=== PATIENT | male | born 1940 | race Caucasian/White ===

== ENCOUNTER 2018-12-03 10:04 | Observation (INO) | payer MEDICARE ==
[~2018-12-03] VITALS: Ht 175.3 cm; Wt 74.8 kg
[2018-12-03 10:29] LABS: BASOPHILS ABSOLUTE AUTO 0.03 K/mm3 (0.00-0.23); BASOPHILS PERCENT AUTO 0 % (0-2); EOSINOPHILS ABSOLUTE AUTO 0.09 K/mm3 (0.00-0.68); EOSINOPHILS PERCENT AUTO 1 % (0-6); Hematocrit 40.9 % (37.0-53.0); Hemoglobin 13.7 g/dL (13.5-17.5); IMMATURE GRAN ABSOLUTE AUTO 0.06 K/mm3 (0.00-0.10); IMMATURE GRAN PERCENT AUTO 1 % (0-1); LYMPHOCYTES ABSOLUTE AUTO 3.37 K/mm3 (0.84-5.20); LYMPHOCYTES PERCENT AUTO 29 % (21-46); MONOCYTES ABSOLUTE AUTO 1.37 K/mm3 (0.16-1.47); MONOCYTES PERCENT AUTO 12 % (4-13); Mean Corpuscular HGB 30.5 pg (26.0-34.0); Mean Corpuscular HGB Conc 33.5 g/dL (31.5-36.5); Mean Corpuscular Volume 91 fL (80-100); Mean Platelet Volume 9.4 fL (9.1-12.4); NEUTROPHILS ABSOLUTE AUTO 6.81 K/mm3 (1.96-9.15); NEUTROPHILS PERCENT AUTO 58 % (41-73); Platelet Count 222 K/mm3 (150-400); RDW Coefficient Variation 14.5 % (11.7-14.2); RDW Standard Deviation 48.5 fL (35.1-46.3); Red Blood Cell Count 4.49 M/mm3 (4.30-5.90); White Blood Cell Count 11.73 K/mm3 (4.00-11.30)
[2018-12-03 10:43] LABS: International Normalized Ratio 1.03; Prothrombin Time Results 10.9 Sec (9.7-11.5)
[2018-12-03 10:45] LABS: Magnesium, Blood 1.9 mg/dL (1.6-2.4)
[2018-12-03 10:46] LABS: Alanine Aminotransfer (ALT/SGP 38 U/L (12-78); Albumin, Blood 3.7 g/dL (3.4-5.0); Albumin/Globulin Ratio 1.2 (0.8-1.8); Alk Phos 92 U/L (50-136); Anion Gap 9 mmol/L (6-16); Aspartate Aminotrans (AST/SGOT 33 U/L (12-37); Bilirubin, Total 0.3 mg/dL (0.1-1.0); Blood Urea Nitrogen 26 mg/dL (8-24); Bun/Creatinine Ratio 28.9 (12.0-20.0); CO2, Blood 27 mmol/L (21-32); Calcium, Blood 9.2 mg/dL (8.5-10.1); Chloride, Blood 96 mmol/L (98-108); Globulin, Blood 3.2 g/dL (2.2-4.0); Glomerular Filtration Rate >60 (60-); Glucose, Blood 134 mg/dL (70-99); Potassium, Blood 4.1 mmol/L (3.5-5.5); Sodium, Blood 132 mmol/L (136-145); Total Protein, Blood 6.9 g/dL (6.4-8.2); Troponin I <0.015 ng/mL (0.000-0.040)
[2018-12-03 11:03] LABS: Digoxin (Lanoxin) <0.06 ug/mL (0.80-2.00)
[2018-12-03] MEDS ORDERED: ATOR40TA PO (12:07)
[2018-12-03] MEDS ORDERED: ALLERGY10 MG PO (12:07)
[2018-12-03] MEDS ORDERED: Citalopram HBr10 MG PO (12:08)
[2018-12-03] MEDS ORDERED: CLON.3TP TOP (12:08)
[2018-12-03] MEDS ORDERED: Diltiazem ER240 MG PO (12:09)
[2018-12-03] MEDS ORDERED: LOSARTAN-HCTZ1 EACH PO (12:10)
[2018-12-03] MEDS ORDERED: HYDROPHILIC113 GM TOP (12:11)
[2018-12-03] MEDS ORDERED: LEVSOD100 PO (12:11)
[2018-12-03] MEDS ORDERED: METO100ER PO (12:12)
[2018-12-03] MEDS ORDERED: METF500 PO (12:13)
[2018-12-03] MEDS ORDERED: PHENO60 PO (12:13)
[2018-12-03] MEDS ORDERED: TRIDERM28.4 GM TOP (12:14)
[2018-12-03] MEDS ORDERED: SALS750 PO (12:14)
[2018-12-03] MEDS ORDERED: ARTHRICREAM85 GM TOP (12:15)
[2018-12-03] MEDS ORDERED: ASPI81CH PO (15:07)
--- NOTE | 2018-12-03 15:13 | NUR ---
NURSING PCU DAYSHIFT: Assumed care of pt at approx 1450. Arrived from ER via gurney accompanied by RN, xferred to unit bed w/SBA. R deficit noted r/t hx of CVA, uses cane or walker to ambulate, splint to RLE for reported foot drop. Denies any pain/discomfort. Skin is fragile w/redness noted to BLE. Tele in place, SB w/HR 50's, no c/o CP/pressure, hypertensive w/SBP 190's, trace BLE edema. L/S cta t/o, O2 sat stable on RA, c/o dyspnea w/exertion, no noted cough. Abd SNT, BT+, voiding clear/yellow urine. PIV x1, s/l. No s/s of acute distress at this time. Pt and s/o at bedside, oriented to unit and plan of care discussed. Pt denies any questions/needs at this time, call light in reach, cont monitor until rpt is given to NOC RN.
--- NOTE | 2018-12-03 17:13 | NUR ---
NURSING PCU DAYSHIFT SUMMARY: No significant changes since arrival to the unit. PMD notified of HTN, new d/o received. Hydralazine administered, f/u SBP 170's. HR remains upper 50's, increases to 70's w/exertion, remains NSR. Pt denies any questions/needs at this time. Call light in reach, bed alarm set for safety, cont to monitor until rpt is given to NOC RN.
[2018-12-03 18:44] LABS: CHOL/HDL RATIO 2.4; Cholesterol 185 mg/dL (50-200); HDL Cholesterol 78 mg/dL (>39); LDL/HDL RATIO 1.3; Low Density Lipoprotein Chol 99 mg/dL (0-110); Triglycerides 38 mg/dL (30-160); Troponin I <0.015 ng/mL (0.000-0.040); Very Low Density Lipoprot Chol 7 mg/dL (6-32)
--- NOTE | 2018-12-04 08:00 | NUR ---
pt sitting on the side of the bed eating breakfast this am. he is very [place] mart[place], somewhat confused with his medications and states his manages them for him. lungs are clear t/o, resp even and unlabored, is on r/a no cough noted, hrr, tele in place running sr with bbb and a murmur, trace edema noted, ppp+1, cap refill <3sec, vs a bit hypertensive, will give am meds and recheck, iv site is clear and patent, btx4, abd flat soft nontender, voids without diff, skin c/w/d, moves all ext, but right side is weaker than left, on upper and lower ext. joann, call light in reach.
--- NOTE | 2018-12-04 08:12 | NUR ---
SHIFT SUMMARY PATIENT PLEASENT AND COOPERATIVE THROUGHOUT THE NIGHT. PATIENT WAKE FOR THE FIRST HALF OF THE NIGHT BUT STATED HE WAS FINE HE JUST, "WASN'T TIRED." HOWEVER, PATIENT APPEARED TO SLEEP ON AND OFF THROUGHOUT THE SECOND HALF OF THE NIGHT. PATIENT UP TO THE BATHROOM WITH ONE ASSIST AND THE FWW OFTEN BUT APPEARED TO BE VOIDING WELL. VITAL SIGNS PER EMAR. REPORT GIVEN TO ONCOMING RN.
[2018-12-04 11:10] LABS: Anion Gap 9 mmol/L (6-16); Blood Urea Nitrogen 17 mg/dL (8-24); Bun/Creatinine Ratio 26.4 (12.0-20.0); CO2, Blood 31 mmol/L (21-32); Calcium, Blood 9.5 mg/dL (8.5-10.1); Chloride, Blood 92 mmol/L (98-108); Creatinine, Blood 0.64 mg/dL (0.60-1.20); Glomerular Filtration Rate >60 (60-); Glucose, Blood 94 mg/dL (70-99); Magnesium, Blood 1.8 mg/dL (1.6-2.4); Potassium, Blood 3.6 mmol/L (3.5-5.5); Sodium, Blood 132 mmol/L (136-145); Troponin I <0.015 ng/mL (0.000-0.040)
--- NOTE | 2018-12-04 13:03 | NUR ---
pt ambulated out in bell with P.T. using a walker, he feels he is at his baseline. b/p continues in the 170's, in room. pt states he feels awful, believes it's because of medication changes. call light in reach.
--- NOTE | 2018-12-04 15:40 | NUR ---
pt complaining of nausia, zofran given. states he needs something to relieve congestion at hs, recieved order from Dr. Trinh for vicks vapor rub, and he was given a dose of his flonase. reports relief. call light in reach, at bedside.
--- NOTE | 2018-12-04 18:31 | NUR ---
pt has been doing well today, he states he didn't feel good this am, but is feeling much better this evening. no acute changes this shift. call light in reach.
--- NOTE | 2018-12-05 02:37 | NUR ---
ASSUMED CARE OF PATIENT AT APPROXIMATELY 1905 FROM CIARAN Jones RN. PATIENT ALERT AND ORIENTED TO SELF, AND LOCATION. PATIENT FORGETFUL AND CONFUSED AT TIMES; HARD OF HEARING AND REPORTS HAS TROUBLE WITH VISION. PATIENT HAS RIGHT SIDED WEAKNESS; LEG BRACE IN ROOM; MILD RIGHT SIDE FACIAL DROOP. PATIENT ONE ASSIST TO BATHROOM WITH FWW AND GAIT BELT. PATIENT HAS NOT CALLED APPROPRIATELY ALL NIGHT; SETS BED ALARM OFF. PATIENT DENIES PAIN, NUMBNESS, TINGLING, DIZZINESS AND NAUSEA. SR W/ BBB ON TELE; OXYGEN SATURATION ABOVE 90% ON ROOM AIR. PIV S/L. PATIENT CURRENTLY SLEEPING IN BED; CALL LIGHT IN REACH; BED IN LOWEST POSISTION; BED ALARM ON; WILL CONTINUE TO MONITOR AND ASSESS UNTIL END OF SHIFT.
[2018-12-05 04:06] LABS: Hemoglobin 13.7 g/dL (13.5-17.5); Mean Corpuscular HGB 30.6 pg (26.0-34.0); Mean Corpuscular HGB Conc 34.3 g/dL (31.5-36.5); Mean Corpuscular Volume 90 fL (80-100); Mean Platelet Volume 9.9 fL (9.1-12.4); Platelet Count 192 K/mm3 (150-400); RDW Coefficient Variation 14.2 % (11.7-14.2); RDW Standard Deviation 46.7 fL (35.1-46.3); Red Blood Cell Count 4.47 M/mm3 (4.30-5.90); White Blood Cell Count 11.74 K/mm3 (4.00-11.30)
[2018-12-05 04:22] LABS: Anion Gap 7 mmol/L (6-16); Blood Urea Nitrogen 24 mg/dL (8-24); Bun/Creatinine Ratio 38.2 (12.0-20.0); CO2, Blood 28 mmol/L (21-32); Calcium, Blood 8.4 mg/dL (8.5-10.1); Chloride, Blood 97 mmol/L (98-108); Creatinine, Blood 0.63 mg/dL (0.60-1.20); Glomerular Filtration Rate >60 (60-); Glucose, Blood 99 mg/dL (70-99); Potassium, Blood 3.7 mmol/L (3.5-5.5); Sodium, Blood 132 mmol/L (136-145)
--- NOTE | 2018-12-05 06:41 | NUR ---
NO ACUTE CHANGES TO REPORT. PATIENT SLEPT ABOUT NINE HOURS LAST NIGHT. WILL CONTINUE TO MONITOR AND ASSESS UNTIL END OF SHIFT.
--- NOTE | 2018-12-05 07:42 | NUR ---
pt laying in bed wakes easily, denies pain, states he had a good night and slept well. a/ox3, with some forgetfulness at times, very [place], lungs are clear t/o, resp even and unlabored, no cough noted, is on r/a, hrr, tele in place running sr with bbb per monitor, murmur noted, 2+ edema noted to b/l le, meggan hose are in place, iv site to left ac site is clear and patent, btx4, abd round soft nontender, voids without diff, skin c/w/d, maew, joann, call light in reach.
--- NOTE | 2018-12-05 13:30 | NUR ---
pt doing well. sits on side of bed most of the day. no complaints. call light in reach.
--- NOTE | 2018-12-05 19:01 | NUR ---
no acute changes this shift. Dr. Colon was concerned about his heart when he first arrived, cardiology was consulted and he was seen this evening. he ok for him to go home with the medication changes that was done. was notified and will be coming in to pick him up. call light in reach.
== END 2018-12-05 20:40 | disposition home or self-care (01) ==
LOC: ER 10:04 → PCU 12:38
PROVIDERS: Emergency Medicine; ADMIT Family Medicine
DX: I48.0 Paroxysmal atrial fibrillation (principal); E03.9 Hypothyroidism, unspecified; E11.9 Type 2 diabetes mellitus without complications; D72.829 Elevated white blood cell count, unspecified; E87.1 Hypo-osmolality and hyponatremia; I10 Essential (primary) hypertension; E78.5 Hyperlipidemia, unspecified; G40.909 Epilepsy, unspecified, not intractable, without status epilepticus; R09.89 Other specified symptoms and signs involving the circulatory and respiratory systems; I69.398 Other sequelae of cerebral infarction; Z79.82 Long term (current) use of aspirin; Z88.8 Allergy status to other drugs, medicaments and biological substances; Z79.899 Other long term (current) drug therapy; Z79.01 Long term (current) use of anticoagulants
CPT/HCPCS: 36415; 71045; 80048; 80053; 80061; 80162; 82947; 83036; 83735; 84443; 84484; 85025; 85027; 85610; 92610; 93005; 93010; 96372; 96374; 96375; 96376; 97161; 97530; 99285-25; G0378; J0360; J1650; J2405

== ENCOUNTER 2019-05-07 08:38 | Inpatient (IN) | payer MEDICARE ==
[~2019-05-07] VITALS: Ht 172.7 cm; Wt 80.1 kg
[~2019-05-07 08:38] MED LIST: ALLERGY10 MG PO; ARTHRICREAM85 GM TOP; ATOR40TA PO; Aspirin EC81 MG PO; CLON.3TP TOP; Citalopram HBr10 MG PO; DILTIAZEM 24HR300 M2; HYDROPHILIC113 GM TOP; LEVSOD100 PO; LOSARTAN-HCTZ1 EACH PO; METF500 PO; METO100ER; PHENO60 PO; SALS500 PO; TRIDERM28.4 GM TOP
[2019-05-07 09:04] LABS: BASOPHILS ABSOLUTE AUTO 0.03 K/mm3 (0.00-0.23); BASOPHILS PERCENT AUTO 0 % (0-2); EOSINOPHILS ABSOLUTE AUTO 0.24 K/mm3 (0.00-0.68); EOSINOPHILS PERCENT AUTO 3 % (0-6); Hematocrit 35.8 % (37.0-53.0); Hemoglobin 12.2 g/dL (13.5-17.5); Mean Corpuscular HGB 29.8 pg (26.0-34.0); Mean Corpuscular HGB Conc 34.1 g/dL (31.5-36.5); Mean Corpuscular Volume 87 fL (80-100); Mean Platelet Volume 9.4 fL (9.1-12.4); Platelet Count 217 K/mm3 (150-400); RDW Coefficient Variation 13.3 % (11.7-14.2); White Blood Cell Count 9.64 K/mm3 (4.00-11.30)
[2019-05-07] MEDS ORDERED: XARELTO15 MG (09:21)
[2019-05-07 09:23] LABS: IMMATURE GRAN ABSOLUTE AUTO 0.03 K/mm3 (0.00-0.10); IMMATURE GRAN PERCENT AUTO 0 % (0-1); LYMPHOCYTES ABSOLUTE AUTO 3.23 K/mm3 (0.84-5.20); LYMPHOCYTES PERCENT AUTO 34 % (21-46); MONOCYTES ABSOLUTE AUTO 0.97 K/mm3 (0.16-1.47); MONOCYTES PERCENT AUTO 10 % (4-13); NEUTROPHILS ABSOLUTE AUTO 5.14 K/mm3 (1.96-9.15); NEUTROPHILS PERCENT AUTO 53 % (41-73)
[2019-05-07 09:24] LABS: International Normalized Ratio 1.03; Prothrombin Time Results 10.9 Sec (9.7-11.5)
[2019-05-07 09:25] LABS: Alanine Aminotransfer (ALT/SGP 36 U/L (12-78); Albumin, Blood 3.6 g/dL (3.4-5.0); Albumin/Globulin Ratio 1.1 (0.8-1.8); Alk Phos 150 U/L (50-136); Anion Gap 8 mmol/L (6-16); Aspartate Aminotrans (AST/SGOT 21 U/L (12-37); Bilirubin, Total 0.3 mg/dL (0.1-1.0); Blood Urea Nitrogen 20 mg/dL (8-24); Bun/Creatinine Ratio 28.2 (12.0-20.0); CO2, Blood 29 mmol/L (21-32); Chloride, Blood 97 mmol/L (98-108); Creatinine, Blood 0.71 mg/dL (0.60-1.20); Globulin, Blood 3.3 g/dL (2.2-4.0); Glomerular Filtration Rate >60 (60-); Glucose, Blood 115 mg/dL (70-99); Potassium, Blood 3.8 mmol/L (3.5-5.5); Sodium, Blood 134 mmol/L (136-145); Total Protein, Blood 6.9 g/dL (6.4-8.2); Troponin I <0.015 ng/mL (0.000-0.040)
[2019-05-07] MEDS ORDERED: ACET325 PO (12:03)
[2019-05-07] MEDS ORDERED: ELIQUIS2.5 MG PO (12:03)
[2019-05-07] MEDS ORDERED: HYDRA25 PO (12:04)
[2019-05-07] MEDS ORDERED: ACET500 PO (12:04)
--- NOTE | 2019-05-07 13:15 | NUR ---
PT ARRIVAL... PT ARRIVED TO UNIT VIA GURNEY AT 1245. PT IS A&Ox3 AND WAS ABLE TO SCOOT HIMSELF FROM THE GURNEY TO THE BED. PT HAS SLIGHT WEAKNESS TO HIS LEGS AND ARMS, HOME CARE MUSIC THERAPIST ARE EQUAL, BILATERAL LEG STRENGTH IS EQUAL. PT IS VERY SYCU[place] AND HAS VERY POOR VISION. VS STABLE AT THIS TIME. PT DENIES HEADACHE, CHEST PAIN, N/V/D OR SOB. PT'S IS AT THE BEDSIDE. L/S CLEAR T/O DIM IN THE BASES. BT PRESENT AND HYPERACTIVE. ABD IS SOFT AND NONTENDER TO PALP. CALL LIGHT IN REACH, BED IS LOCKED AND LOW WILL CONTINUE TO MONITOR.
[2019-05-07] MEDS ORDERED: Synthroid88 MCG PO (14:25)
[2019-05-07] MEDS ORDERED: SODCHL3.5O UD (14:27)
[2019-05-07] MEDS ORDERED: REFRESH OPTIVE10 ML UD (14:29)
--- NOTE | 2019-05-07 18:43 | NUR ---
SHIFT SUMMARY. NO ACUTE NEGATIVE CHANGES NOTED THIS SHIFT. PT'S GAIT HAS IMPROVED AND PT IS MORE STEADY ON HIS FEET. PT HAS WALKED W/FWW AND GAITBELT TO THE BATHROOM TO VOID. PT'S VS STABLE AT THIS TIME. BEDSIDE SWALLOW STUDY DONE BY THIS RN ON THIS PT, PT SHOWED NO SIGNS/SYMPTOMS OF ASPIRATION DURING SWALLOW STUDY, PROVIDER WAS CALLED AND PT IS OKAY TO HAVE FULL LIQUID DIET UNTIL PT IS SEEN BY SPEECH THERAPY. CALL LIGHT IN REACH, BED IS LOCKED AND LOW WILL CONTINUE TO MONITOR UNTIL REPORT IS GIVEN TO ONCOMING RN.
[2019-05-08 04:16] LABS: BASOPHILS ABSOLUTE AUTO 0.03 K/mm3 (0.00-0.23); BASOPHILS PERCENT AUTO 0 % (0-2); EOSINOPHILS ABSOLUTE AUTO 0.21 K/mm3 (0.00-0.68); EOSINOPHILS PERCENT AUTO 3 % (0-6); Hematocrit 36.3 % (37.0-53.0); Hemoglobin 12.5 g/dL (13.5-17.5); IMMATURE GRAN ABSOLUTE AUTO 0.02 K/mm3 (0.00-0.10); IMMATURE GRAN PERCENT AUTO 0 % (0-1); LYMPHOCYTES ABSOLUTE AUTO 2.64 K/mm3 (0.84-5.20); LYMPHOCYTES PERCENT AUTO 34 % (21-46); MONOCYTES ABSOLUTE AUTO 0.82 K/mm3 (0.16-1.47); MONOCYTES PERCENT AUTO 11 % (4-13); Mean Corpuscular HGB 30.6 pg (26.0-34.0); Mean Corpuscular HGB Conc 34.4 g/dL (31.5-36.5); Mean Corpuscular Volume 89 fL (80-100); Mean Platelet Volume 9.6 fL (9.1-12.4); NEUTROPHILS ABSOLUTE AUTO 4.05 K/mm3 (1.96-9.15); NEUTROPHILS PERCENT AUTO 52 % (41-73); Platelet Count 204 K/mm3 (150-400); RDW Coefficient Variation 13.3 % (11.7-14.2); RDW Standard Deviation 43.5 fL (35.1-46.3); Red Blood Cell Count 4.09 M/mm3 (4.30-5.90); White Blood Cell Count 7.77 K/mm3 (4.00-11.30)
[2019-05-08 05:18] LABS: Alanine Aminotransfer (ALT/SGP 34 U/L (12-78); Albumin, Blood 3.3 g/dL (3.4-5.0); Albumin/Globulin Ratio 1.1 (0.8-1.8); Alk Phos 156 U/L (50-136); Anion Gap 7 mmol/L (6-16); Aspartate Aminotrans (AST/SGOT 22 U/L (12-37); Bilirubin, Total 0.3 mg/dL (0.1-1.0); Blood Urea Nitrogen 13 mg/dL (8-24); Bun/Creatinine Ratio 21.3 (12.0-20.0); CHOL/HDL RATIO 2.4; CO2, Blood 28 mmol/L (21-32); Calcium, Blood 8.7 mg/dL (8.5-10.1); Chloride, Blood 98 mmol/L (98-108); Cholesterol 154 mg/dL (50-200); Creatinine, Blood 0.61 mg/dL (0.60-1.20); Globulin, Blood 3.1 g/dL (2.2-4.0); Glomerular Filtration Rate >60 (60-); Glucose, Blood 99 mg/dL (70-99); HDL Cholesterol 64 mg/dL (>39); LDL/HDL RATIO 1.3; Low Density Lipoprotein Chol 82 mg/dL (0-110); Magnesium, Blood 1.9 mg/dL (1.6-2.4); Sodium, Blood 133 mmol/L (136-145); Total Protein, Blood 6.4 g/dL (6.4-8.2); Triglycerides 41 mg/dL (30-160); Very Low Density Lipoprot Chol 8 mg/dL (6-32)
--- NOTE | 2019-05-08 05:52 | NUR ---
PT VSS T/O NIGHT. LEFT GLOBAL UPSTREAM MARKETING MANAGER DOES APPEAR STRONGER THIS AM, CLOSE TO RUE BASELINE. SPEECH REMAINS SLURRED, IS MORE SO WHEN TIRED. GAIT IS UNSTEADY, PT NEEDING FWW1+1 MOD ASSIST W/GAIT BELT WHEN UP. PT SWALLOWING W/O DIFFICULTY. PT VERY PLEASANT AND COOPERATIVE, IS REPOSITIONING SELF IN BED, HOB ELEVATED. PT USES CALL LIGHT FOR ASSISTANCE, WILL CONT TO MONITOR UNTIL REP GIVEN TO ONCOMING RN.
--- NOTE | 2019-05-08 14:30 | NUR ---
ASSUMED CARE OF PATIENT. PT IS RESTING WITH EYES CLOSED IN BED. BED ALARM ON FOR SAFETY. CALL LIGHT IN REACH. REPORT RECIEVED FROM SON SURG FLOOR RN.
--- NOTE | 2019-05-08 15:30 | NUR ---
ASSESSMENT INITIAL ASSESSMENT UNCHANGED. PT IS HYPERTENSIVE. OTHER VSS. PT ASSISTED TO USE URINAL AND SIT IN CHAIR. MRI SCREENING FORM FILLED OUT. PT DENIES OTHER NEEDS AT THIS TIME. CALL LIGHT IN REACH, WILL CONTINUE TO MONITOR.
--- NOTE | 2019-05-08 17:43 | NUR ---
PO MEDS GIVEN WHOLE WITH APPLESAUCE. CALLED FOR BLOOD PRESSURE MEDICATIONS. CARDIZEM AND HYDRALAZINE GIVEN. PT IS SITTING AT THE EDGE OF THE BED EATING DINNER. PT DENIES FURTHER NEEDS AT THIS TIME, CALL LIGHT IN REACH.
--- NOTE | 2019-05-08 18:13 | NUR ---
PT HAS DONE WELL THIS SHIFT. BLOOD PRESSURE WAS A LITTLE ELEVATED THIS EVENING, SOME OF PATIENTS HOME BP MEDS ORDERED. PT HAD MRI, AWAITING RESULTS. NO ACUTE CHANGES THIS SHIFT. WILL REPORT TO ONCOMING RN.
--- NOTE | 2019-05-09 05:37 | NUR ---
SHIFT SUMMARY ASSUMED CARE OF PT AT APPROX 1900, PT ALERT AND ORIENTED LAYING IN BED HEAD AT 35 DEGREES. ALL VSS THROUGHOUT SHIFT WITH BP IN THE 150'S AND 160'S WHICH IS PATIENT'S BASELINE. PT HAS POOR VISION, IS WICH[place], AND SLUGGISH IN SPEECH WITH RT SIDE MOTOR DIFFICULTY R/T RECENT CVA, BUT PLEASANT AND CONVERSIVE TOLERATING ALL INTERVENTIONS WELL. PT USES CALL LIGHT APPROPRIATELY, STANDS AT SIDE OF BED TO USE URINAL WITH 1P STANDBY ASSIST AND EITHER 4WW OR SIDERAIL SUPPORT, NEEDING ASSIST W/ HOLDING URINAL. CAN REPOSITION SELF IN BED, AND RESPONDS WELL TO DIRECTION. WILL CONTINUE TO MONITOR AND PROVIDE CARE UNTIL REPORTING TO ONCOMING SHIFT. BED LOW AND LOCKED, CALL LIGHT W/IN REACH, PT REPORTS "RESTED" AND "NO PAIN."
[2019-05-09 09:05] LABS: Hematocrit 41.2 % (37.0-53.0); Hemoglobin 14.1 g/dL (13.5-17.5); Mean Corpuscular HGB Conc 34.2 g/dL (31.5-36.5); Mean Corpuscular Volume 88 fL (80-100); Mean Platelet Volume 8.7 fL (9.1-12.4); Platelet Count 213 K/mm3 (150-400); RDW Coefficient Variation 13.3 % (11.7-14.2); White Blood Cell Count 8.41 K/mm3 (4.00-11.30)
[2019-05-09 09:30] LABS: Alanine Aminotransfer (ALT/SGP 34 U/L (12-78); Albumin, Blood 3.8 g/dL (3.4-5.0); Albumin/Globulin Ratio 1.1 (0.8-1.8); Alk Phos 185 U/L (50-136); Anion Gap 8 mmol/L (6-16); Aspartate Aminotrans (AST/SGOT 21 U/L (12-37); Bilirubin, Total 0.3 mg/dL (0.1-1.0); Blood Urea Nitrogen 9 mg/dL (8-24); Bun/Creatinine Ratio 13.7 (12.0-20.0); CO2, Blood 29 mmol/L (21-32); Chloride, Blood 97 mmol/L (98-108); Creatinine, Blood 0.66 mg/dL (0.60-1.20); Globulin, Blood 3.6 g/dL (2.2-4.0); Glomerular Filtration Rate >60 (60-); Glucose, Blood 174 mg/dL (70-99); Potassium, Blood 3.8 mmol/L (3.5-5.5); Sodium, Blood 134 mmol/L (136-145); Total Protein, Blood 7.4 g/dL (6.4-8.2)
[2019-05-09 10:11] LABS: BASOPHILS PERCENT MAN 0 % (0-2); EOSINOPHILS ABSOLUTE MAN 0.16 K/mm3 (0.00-0.68); EOSINOPHILS PERCENT MAN 2 % (0-6); LYMPHOCYTES ABSOLUTE MAN 2.35 K/mm3 (0.84-5.20); LYMPHOCYTES PERCENT MAN 28 % (21-46); MONOCYTES ABSOLUTE MAN 0.84 K/mm3 (0.16-1.47); MONOCYTES PERCENT MAN 10 % (4-13); NEUTROPHILS ABSOLUTE MAN 5.04 K/mm3 (1.96-9.15); SEG NEUTROPHILS PERCENT MAN 60 % (41-73); TOTAL CELLS COUNTED 100
--- NOTE | 2019-05-09 15:22 | NUR ---
TRANSFER NOTE PT STABLE FOR TRANSFER TO MEDICAL FLOOR. REPORT CALLED TO JULIA IBARRA ON MEDICAL FLOOR. PT TRANSFERED VIA BED TO MEDICAL FLOOR WITH BELONGINGS.
--- NOTE | 2019-05-09 16:44 | NUR ---
TRANSFER FROM PCU 6, PT ARRIVE TO RM 359 APPROX 1600. DX CVA. HE IS A/O X2-3, HOWEVER SPEECH VERY SLURRED, L FACIAL DROOP. TIN DIPPER/DORSIFLEX STRONG HOWEVER L ARM UNCOORDINATION NOTED. HE STATE HX CVA w R WEAKNESS, STATE HE RECOVERED NOW HOPEFUL w REHAB TO RECOVER FROM NEW L SIDED & SPEECH DEFICITS. HE IS PLEASANT/COOPERATIVE w POSITIVE AFFECT. UP ON BEDSIDE TO USE URINAL HOWEVER UNABLE TO BALANCE TO STAND, 2 ASSIST @ THIS TIME. BP 172/92.
--- NOTE | 2019-05-10 07:34 | NUR ---
SHIFT SUMMARY PT IS AN 78 Y/O MALE, ADMITTED FOR A CVA WITH L-SIDE DEFICITS. PT HAS SOME L-SIDE WEAKNESS AND DISCOORDINATION, WITH A L-SIDE FACIAL DROOP. PT DENIED ANY COMPLAINTS OF ACUTE PAIN, NAUSEA OR SOB, THOUGH HE DID NOT SLEEP MUCH DURING THE NIGHT. PT'S BP WAS ELEVATED DURING THE NIGHT IN THE 170-190S SYSTOLICALLY. THE HOSPITALIST BRINDA MONTOYA WAS CONSULTED, AND IV LABETOLOL WAS ORDERED FOR ANY SYSTOLIC BP > 200. ALL OTHER VITALS STABLE. NO OTHER ACUTE CHANGES IN PT CONDITION NOTED. REPORT GIVEN TO ONCOMING RN.
[2019-05-10 09:02] LABS: BASOPHILS ABSOLUTE AUTO 0.03 K/mm3 (0.00-0.23); BASOPHILS PERCENT AUTO 0 % (0-2); EOSINOPHILS ABSOLUTE AUTO 0.23 K/mm3 (0.00-0.68); EOSINOPHILS PERCENT AUTO 2 % (0-6); Hemoglobin 14.6 g/dL (13.5-17.5); IMMATURE GRAN ABSOLUTE AUTO 0.02 K/mm3 (0.00-0.10); IMMATURE GRAN PERCENT AUTO 0 % (0-1); LYMPHOCYTES PERCENT AUTO 27 % (21-46); MONOCYTES ABSOLUTE AUTO 1.28 K/mm3 (0.16-1.47); MONOCYTES PERCENT AUTO 12 % (4-13); Mean Corpuscular HGB 29.9 pg (26.0-34.0); Mean Corpuscular HGB Conc 34.8 g/dL (31.5-36.5); Mean Corpuscular Volume 86 fL (80-100); NEUTROPHILS ABSOLUTE AUTO 6.43 K/mm3 (1.96-9.15); NEUTROPHILS PERCENT AUTO 59 % (41-73); Platelet Count 236 K/mm3 (150-400); RDW Coefficient Variation 13.2 % (11.7-14.2); RDW Standard Deviation 41.2 fL (35.1-46.3); Red Blood Cell Count 4.88 M/mm3 (4.30-5.90); White Blood Cell Count 10.99 K/mm3 (4.00-11.30)
[2019-05-10 09:46] LABS: Alanine Aminotransfer (ALT/SGP 29 U/L (12-78); Albumin, Blood 3.9 g/dL (3.4-5.0); Albumin/Globulin Ratio 1.1 (0.8-1.8); Alk Phos 197 U/L (50-136); Anion Gap 4 mmol/L (6-16); Aspartate Aminotrans (AST/SGOT 27 U/L (12-37); Bilirubin, Total 0.5 mg/dL (0.1-1.0); Blood Urea Nitrogen 11 mg/dL (8-24); Bun/Creatinine Ratio 17.8 (12.0-20.0); CO2, Blood 26 mmol/L (21-32); Chloride, Blood 96 mmol/L (98-108); Creatinine, Blood 0.62 mg/dL (0.60-1.20); Globulin, Blood 3.6 g/dL (2.2-4.0); Glomerular Filtration Rate >60 (60-); Glucose, Blood 127 mg/dL (70-99); Sodium, Blood 126 mmol/L (136-145); Total Protein, Blood 7.5 g/dL (6.4-8.2)
--- NOTE | 2019-05-10 19:20 | NUR ---
SHIFT SUMMARY. A&OX2-3, GARBLED SPEECH, PT IS DIFFICULT TO UNDERSTAND SECONDARY TO L FACIAL DROOP ALTHOUGH APPEARS TO ANSWER APPROPRIATELY. PT IS 2 PERSON ASSIST TO BSC AND CHAIR WITH FWW AND GB. PT CONTINUES WITH L SIDED ARM AND LEG WEAKNESS, PT HAS DICFFICULTY MOVING L LEG. PT AND FAMILY REPORT L WRIST ARTHRITIS AND PAIN THAT WAS MANAGED WELL WITH APAP. REPEAT CT HEAD COMPLETED TODAY. AND DAUGHTER AT BEDSIDE INTERMITTENTLY THROUGHOUT SHIFT. PT CONTINUES WITH MILD HTN, CLONIDINE PATCH DOSE INCREASED. NO OTHER CHANGES OR CONCERNS.
--- NOTE | 2019-05-11 07:36 | NUR ---
05/11/19 0620 SLEPT FOR FEW HOURS AFTER PM MEDS GIVEN. REPOSITIONED SIDE TO SIDE WITH PILLOWS. LEFT SIDE VERY WEAK. VITALS STABLE. CAN BE IMPULSIVE AT TIMES TO GET UP BUT BED ALARM WARNS STAFF. VOIDS IN URINAL AND OCC. INCONTINENT IN BRIEFS.
[2019-05-11 09:17] LABS: BASOPHILS ABSOLUTE AUTO 0.04 K/mm3 (0.00-0.23); BASOPHILS PERCENT AUTO 0 % (0-2); EOSINOPHILS ABSOLUTE AUTO 0.19 K/mm3 (0.00-0.68); EOSINOPHILS PERCENT AUTO 2 % (0-6); Hematocrit 38.3 % (37.0-53.0); Hemoglobin 13.4 g/dL (13.5-17.5); IMMATURE GRAN ABSOLUTE AUTO 0.03 K/mm3 (0.00-0.10); IMMATURE GRAN PERCENT AUTO 0 % (0-1); LYMPHOCYTES ABSOLUTE AUTO 2.79 K/mm3 (0.84-5.20); LYMPHOCYTES PERCENT AUTO 24 % (21-46); MONOCYTES ABSOLUTE AUTO 1.54 K/mm3 (0.16-1.47); MONOCYTES PERCENT AUTO 13 % (4-13); Mean Corpuscular Volume 86 fL (80-100); Mean Platelet Volume 9.3 fL (9.1-12.4); NEUTROPHILS ABSOLUTE AUTO 6.95 K/mm3 (1.96-9.15); NEUTROPHILS PERCENT AUTO 60 % (41-73); Platelet Count 215 K/mm3 (150-400); RDW Coefficient Variation 13.2 % (11.7-14.2); RDW Standard Deviation 41.1 fL (35.1-46.3); Red Blood Cell Count 4.46 M/mm3 (4.30-5.90); White Blood Cell Count 11.54 K/mm3 (4.00-11.30)
[2019-05-11 09:37] LABS: Alanine Aminotransfer (ALT/SGP 25 U/L (12-78); Albumin, Blood 3.3 g/dL (3.4-5.0); Alk Phos 167 U/L (50-136); Anion Gap 6 mmol/L (6-16); Aspartate Aminotrans (AST/SGOT 23 U/L (12-37); Bilirubin, Total 0.6 mg/dL (0.1-1.0); Blood Urea Nitrogen 16 mg/dL (8-24); Bun/Creatinine Ratio 25.1 (12.0-20.0); CO2, Blood 27 mmol/L (21-32); Calcium, Blood 8.5 mg/dL (8.5-10.1); Chloride, Blood 96 mmol/L (98-108); Creatinine, Blood 0.64 mg/dL (0.60-1.20); Globulin, Blood 3.3 g/dL (2.2-4.0); Glomerular Filtration Rate >60 (60-); Glucose, Blood 121 mg/dL (70-99); Potassium, Blood 3.8 mmol/L (3.5-5.5); Sodium, Blood 129 mmol/L (136-145); Total Protein, Blood 6.6 g/dL (6.4-8.2)
--- NOTE | 2019-05-11 13:38 | NUR ---
PT WITH INCREASING DIFFICULTY WITH NON PUREED FOODS, REPORTS PT IS COUGHING DURING EATING LUNCH. PT WITH SOME DROOLING FROM LEFT SIDE OF MOUTH YESTERDAY, DROOLING AND FOOD COMING OUT OF L MOUTH HAS INCREASED TODAY. DIET ORDER CHANGED TO ST INES NOTIFIED OF PT CHANGE, SHE REPORTED TO PHYSICAL THERAPY THAT SHE WILL BE IN TO SEE PT TODAY.
--- NOTE | 2019-05-11 19:07 | NUR ---
SHIFT SUMMARY. PT'S SYMPTOMS HAVE WORSENED TODAY. HIS L SIDED WEAKNESS TO [facility] AND LEG HAS INCREASED TO ALMOST FALCCID. L FACIAL DROOP HAS INCREASED, PT'S SPEECH IS LESS CLEAR, PT IS UNABLE TO KEEP L SIDE OF MOUTH CLOSED WHILE EATING RESULTING IN SPILLIN OF FOOD AND FLUID. ST IN TO [facility] TODAY AND HAS MADE PT NPO, POSSIBLE BARIUM SWALLOW TOMORROW. FAMILY AT BEDSIDE INTERMITTENTLY TODAY, AND DAUGHTER AND SON IN LAW, DR. VIERA SPOKE WITH THEM IN PERSON THIS AM AND ON THE PHONE WITH UPDATES THIS AFTERNOON.
--- NOTE | 2019-05-12 06:17 | NUR ---
05/12/19 0545 REPOSITIONED AND BRIEFS CHANGED FOR INCONTENENCE OF URINE. SLURRED SPEECH UNCHANGED. ORAL CARE GIVEN AND ORAL SUCTIONING DONE PRN SECRETIONS/ORAL CARE. LEFT SIDE FLACCID. NPO. VITALS STABLE.
--- NOTE | 2019-05-12 11:29 | NUR ---
Initial Visit: Pt admitted for CVA. History of prior CVA, treated with Xarelto. HTN, DM. Initally able to talk and walk following current illness, but has continued to decline with worsening symptoms in the last 4-5 days. Pt is alert, oriented. Left facial droop evident: left side hemiparesis with near flaccid extremites. He is able to make needs known by right-handed "okay" gesture and nodding. With this gesture and nodding, it is determined clearly that he would not like to continue being a FULL CODE. He does not desire chest compressions or intubation. He is accepting of IV fluids, antibiotics, non-invasive respiratory support such as bipap or CPAP machines. These are discussed in detail. POLST form reviewed and filled out, with Fiordaliza signing for the pt with the pt's agreement. Reviewed appropriate POLST placement in the home, and need for POLST form to follow pt to SNF when he is discharged. Instructed that the hospital will keep a copy of the form and copies will be provided to his and his daughter as soon as the doctor signs it. Reviewed benefits of the form. Family is bedside during this discussion and is agreeable with his choices. His , Fiordaliza, states that the two of them have had discussions in the past in regard to life saving interventions. She states that he has "always" been consistent in his declining for heroic measures. Family and pt's concerns are that he will not recover in a meaningful way and will be unable to return home to Fiordaliza's care. She is elderly herself and uses a walker. They are requesting to speak to a rental boats caretaker for instruction on future plans. They would like to be ready for any possible scenario. Instructed on SNF goals and assessment by physical therapists and occupational therapists. Concern for proper equipment in the home for when he is able to return, if he is able to walk and perform ADLs appropriately. Message left for media planner / buyer, Vanessa, requesting follow up with family to discuss this. Current KPS score is 40% PPS 40% Pt complaining of pain in his left side. He has been getting Tylenol, which has been effective. Updated nurse, Mp, on POLST form and pain level. Face score of 5/10. Dr. Schmidt to sign POLST form.
--- NOTE | 2019-05-12 18:36 | NUR ---
SHIFT SUMMARY. A&OX1-2, GARBLED SPEECH MAKES IT DIFFICULT TO UNDERSTAND BUT PT IS ABLE TO ANSWER Y/N QUESTIONS WITH NODS, PT IS ABLE TO GIVE YEAR OF AND RECOGNIZES ALL FAMILY. PT ATTEMPTS TO MAKE NEEDS KNOWN WITH HAND SIGNALS. SOFT TOUCH CALL LIGHT IN USE. PT IS A 2 PERSON MAX ASSIST WITH PIVOT TRANSFER TO CHAIR WITH GB. PT CONTINUES WITH L ARM AND L LEG DEFICITS, ALMOST NO MOVEMENT THIS SHIFT, MINOR MOVEMENT OF L ANKLE. JOSÉ ANTONIO. L FACIAL DROOP. PT LEANS TO L SIDE AND NEEDS SUPPORTED. PT REQUIRES FEEDING ASSIST, ST COMPLETED MODIFIED BARIUM SWALLOW STUDY WHICH HE PASSED AND WAS PROGRESSED TO DIET FOR LUNCH TODAY. ORAL CARE WITH SUCTIONED PERFORMED AFTER EACH MEAL. PT UP TO CHAIR FOR ALL MEALS. MEPILEX PLACED TO HEELS AND COCCYX FOR PREVENTION. PT REPOSITIONED FREQUENTLY. BED BATH COMPLETED. PALLITIVE CARE IN TO SEE PT TODAY, POLST FILLED OUT WITH FAMILY INCLUDING , DAUGHTER, AND SON IN LAW, SIGNED BY DR. VIERA. PT IS NOW DNR.
--- NOTE | 2019-05-13 04:24 | NUR ---
SHIFT SUMMARY: PT IS ALERT AND ORIENTED, DIFFICULT TO UNDERSTAND, GARBLED SPEECH. PT IS CALM AND COOPERATIVE WITH CARE. PT UNABLE TO CALL APPROPRIATELY. PT IS EITHER A TWO PERSON MAX OR A LIFT FOR TRANSFERS. PT CONTINENT/INCONTINENT, CHANGED AND CLEANED NEEDED. PT REPORTS NECK PAIN ON ONE OCCASION, GAVE PRN TYLENOL. PT DENIES NAUSEA, VOMITING, AND SOB. PT SLEPT MUCH OF THE NIGHT WHEN NOT DISTURBED. TURNED Q2H ORDERED. FLUIDS RUNNING ORDERED. NO ACUTE CHANGES OR COMPLICATIONS THIS SHIFT. WILL CONTINUE TO MONITOR.
--- NOTE | 2019-05-13 18:25 | NUR ---
SHIFT SUMMARY PATIENT ALERT AND ORIENTED, GARBLED SPEECH, HARD TO UNDERSTAND. WAS ABLE TO POINT TO PICTURES/LETTERS ON SIGN BOARD TO COMMUNICATE SOMEWHAT. PATIENT HAD A FEW SMALL/SMEAR BMS TODAY IN BED SCALES. DRANK THICKENED PRUNE JUICE WELL. PATIENT TURNED Q2 WITH PILLOW SUPPORT. PT UP TO CHAIR FOR BREAKFAST, DIFFICULT TO TRANSFER WITH 2 ASSIST AND GB. PT SOMEWHAT CONTINENT. BLOOD SUGARS WNL. TYLENOL GIVEN FOR NECK AND L WRIST PAIN. PATIENT WAS LESS TALKATIVE AND LESS ALERT THIS MORNING COMPARED TO YESTERDAY MORNING ACCORDING TO SPEECH THERAPISTS AND ROAD MENDER. DR VIERA NOTIFIED. TRAZODONE DC-ED. PATIENT'S DAUGHTER STATES THAT PATIENT HASN'T BEEN SLEEPING VERY WELL SO WAS HOPING THE PATIENT WOULD STILL BE GETTING TRAZODONE.
--- NOTE | 2019-05-14 04:32 | NUR ---
SHIFT SUMMARY: PT IS ALERT AND ORIENTED. PT IS CALM AND COOPERATIVE WITH CARE. PT IS NOT ABLE TO CALL APPROPRIATELY. PT IS A MAX ASSIST FOR TRANSFERS, NOT OUT OF BED OVERNIGHT. PT TURNED Q2H. PT INCONTINENT ON SEVERAL OCCASIONS, CHANGED AND CLEANED NEEDED. PT REPORTS NECK PAIN, GAVE PRN TYLENOL. PT DENIES NAUSEA, VOMITING, AND SOB. PT TAKING HIS MEDS CRUSHED IN APPLESAUCE WITHOUT COMPLICATION. NO ACUTE CHANGES OR COMPLICATIONS THIS SHIFT. BED IN LOW POSITION, CALL LIGHT WITHIN REACH. WILL REPORT TO DAY NURSE.
[2019-05-14] MEDS ORDERED: CHLO25B PO (12:32)
[2019-05-14] MEDS ORDERED: Humalog100 UNIT/3 (12:37)
[2019-05-14] MEDS ORDERED: LOSA50 PO (12:39)
[2019-05-14] MEDS ORDERED: PRAM.5 PO (12:41)
--- NOTE | 2019-05-14 16:17 | NUR ---
DISCHARGE AT 1551 PATIENT DISCHARGED VIA STRETCHER TRANSPORT TO [facility]. PATIENT'S , DAUGHTER, AND SON IN LAW WERE IN ROOM AND WILL MEET PT AT THE FACILITY. REPORT CALLED TO NURSE LEY. PATIENT HAD TYLENOL AROUND 1300 FOR L WRIST/NECK PAIN. PATIENT EATING ALL MEALS, BLOOD SUGARS STABLE. PACKET AND POLST FORM SENT WITH TRANSPORTERS. IV REMOVED.
== END 2019-05-14 15:50 | DRG 65 ==
LOC: ER 08:38 → PCU 10:36 → MEDS 05-09 15:46 → ENPENDDIS 05-14 10:30 → MEDS 05-14 15:50
PROVIDERS: Emergency Medicine; ADMIT Internal Medicine
DX: I63.512 Cerebral infarction due to unspecified occlusion or stenosis of left middle cerebral artery (principal); I50.32 Chronic diastolic (congestive) heart failure; E87.1 Hypo-osmolality and hyponatremia; Z79.82 Long term (current) use of aspirin; E03.9 Hypothyroidism, unspecified; Z79.84 Long term (current) use of oral hypoglycemic drugs; E78.5 Hyperlipidemia, unspecified; G40.909 Epilepsy, unspecified, not intractable, without status epilepticus; E11.9 Type 2 diabetes mellitus without complications; I11.0 Hypertensive heart disease with heart failure; I35.0 Nonrheumatic aortic (valve) stenosis; I48.2 Chronic atrial fibrillation; Z66 Do not resuscitate
CPT/HCPCS: 36415; 70450; 70496; 70551; 74230; 80053; 80061; 82947; 83036; 83735; 84443; 84484; 85025; 85610; 85730; 92526; 92610; 92611; 93005; 93010; 93306; 93880; 94762; 97110; 97112; 97116; 97162; 97164; 97165; 97168; 97530; 97535; 99285-25; A9270; J7030; Q9967

== ENCOUNTER 2019-09-30 14:41 | Inpatient (IN) | payer OTHER, MEDICARE ==
[~2019-09-30] VITALS: Ht 177.8 cm; Wt 62.8 kg
[~2019-09-30 14:41] MED LIST changes: +ACET325 PO; +ACET500 PO; -ATOR40TA PO; -CLON.3TP TOP; -Citalopram HBr10 MG PO; -DILTIAZEM 24HR300 M2; +HYDRA25 PO; +Humalog100 UNIT/3; -METF500 PO; -METO100ER; -PHENO60 PO; +PRAM.5 PO; +XARELTO15 MG
[2019-09-30 15:37] LABS: BASOPHILS ABSOLUTE AUTO 0.01 K/mm3 (0.00-0.23); BASOPHILS PERCENT AUTO 0 % (0-2); EOSINOPHILS PERCENT AUTO 0 % (0-6); Hematocrit 31.2 % (37.0-53.0); Hemoglobin 10.6 g/dL (13.5-17.5); IMMATURE GRAN PERCENT AUTO 1 % (0-1); LYMPHOCYTES ABSOLUTE AUTO 1.68 K/mm3 (0.84-5.20); LYMPHOCYTES PERCENT AUTO 11 % (21-46); MONOCYTES ABSOLUTE AUTO 0.91 K/mm3 (0.16-1.47); MONOCYTES PERCENT AUTO 6 % (4-13); Mean Corpuscular HGB 31.4 pg (26.0-34.0); Mean Platelet Volume 10.3 fL (9.1-12.4); NEUTROPHILS ABSOLUTE AUTO 13.06 K/mm3 (1.96-9.15); NEUTROPHILS PERCENT AUTO 83 % (41-73); Platelet Count 324 K/mm3 (150-400); RDW Coefficient Variation 13.7 % (11.7-14.2); RDW Standard Deviation 46.5 fL (35.1-46.3); Red Blood Cell Count 3.38 M/mm3 (4.30-5.90); White Blood Cell Count 15.76 K/mm3 (4.00-11.30)
[2019-09-30 15:40] LABS: Mean Corpuscular Volume 92 fL (80-100)
[2019-09-30 15:52] LABS: International Normalized Ratio 1.12; Prothrombin Time Results 11.9 Sec (9.7-11.5)
[2019-09-30 15:55] LABS: Alanine Aminotransfer (ALT/SGP 43 U/L (12-78); Albumin, Blood 2.4 g/dL (3.4-5.0); Anion Gap 8 mmol/L (6-16); Aspartate Aminotrans (AST/SGOT 64 U/L (12-37); Blood Urea Nitrogen 33 mg/dL (8-24); Bun/Creatinine Ratio 44.1 (12.0-20.0); CO2, Blood 28 mmol/L (21-32); Calcium, Blood 8.8 mg/dL (8.5-10.1); Chloride, Blood 110 mmol/L (98-108); Creatinine, Blood 0.75 mg/dL (0.60-1.20); Glomerular Filtration Rate >60 (60-); Glucose, Blood 167 mg/dL (70-99); Potassium, Blood 2.9 mmol/L (3.5-5.5); Sodium, Blood 146 mmol/L (136-145)
[2019-09-30 15:58] LABS: Albumin/Globulin Ratio 0.4 (0.8-1.8); Alk Phos 96 U/L (50-136); Bilirubin, Total 0.4 mg/dL (0.1-1.0); Globulin, Blood 5.7 g/dL (2.2-4.0); Total Protein, Blood 8.1 g/dL (6.4-8.2)
[2019-09-30 16:06] LABS: Source, Urine Catheter
[2019-09-30] MEDS ORDERED: NITR100CA PO (16:12)
[2019-09-30 16:24] LABS: Bilirubin, Urine Neg (Neg); Blood, Urine 5+ (Neg); Glucose Qualitative, Urine Neg (Neg); Ketones, Urine 1+ (Neg); Leukocyte Esterase, Urine 2+ (Neg); Nitrite, Urine Neg (Neg); Protein, Urine 2+ (Neg); Specific Gravity, Urine 1.015 (1.003-1.022); Urobilinogen, Urine NORM (Normal)
[2019-09-30 16:32] LABS: Appearance, Urine Clear (Clear); Color, Urine Yellow (P-Yellow)
[2019-09-30 16:33] LABS: Bacteria Few /hpf; Red Blood Cells, Urine TNTC /hpf (0-2); Squamous Epithelial Cells Few /hpf (Few); White Blood Cells, Urine 25-50 /hpf (0-5)
[2019-09-30] MEDS ORDERED: ATOR40TA PT (16:47)
[2019-09-30] MEDS ORDERED: Citalopram HBr10 MG PT (16:49)
[2019-09-30] MEDS ORDERED: CATAPRES-TTS 31 EACH TOP (16:52)
[2019-09-30] MEDS ORDERED: DILTIAZEM 24HR300 M2 PO (16:52)
[2019-09-30] MEDS ORDERED: METO100 PO (16:53)
[2019-09-30] MEDS ORDERED: METF500 PT (16:53)
[2019-09-30] MEDS ORDERED: PHENOBARBITAL PT (16:55)
[2019-09-30] MEDS ORDERED: LEVSOD100 PT (16:55)
[2019-09-30] MEDS ORDERED: ELIQUIS2.5 MG PT (16:55)
[2019-09-30] MEDS ORDERED: LOSA50 PO (16:56)
[2019-09-30] MEDS ORDERED: CHLO25B PO (16:56)
[2019-09-30] MEDS ORDERED: DOCU100 PO (16:57)
[2019-09-30] MEDS ORDERED: MELA3 PT (16:58)
[2019-09-30] MEDS ORDERED: TRAZ50 PO (16:58)
[2019-09-30] MEDS ORDERED: POTA10T PT (16:58)
[2019-09-30] MEDS ORDERED: BACL10 PO ×2 (16:59→17:03)
[2019-09-30] MEDS ORDERED: ACET325 PT (17:03)
[2019-09-30] MEDS ORDERED: Refresh Plus1 EACH BOTHEYES ×2 (17:05→17:07)
[2019-09-30] MEDS ORDERED: TRAM50 PO (17:06)
[2019-09-30] MEDS ORDERED: TRIA15CR3 TOP (17:08)
[2019-09-30] MEDS ORDERED: EUCERIN TOP (17:09)
[2019-09-30] MEDS ORDERED: ALLEGRA ALLERG180 MG PO (17:12)
[2019-09-30] MEDS ORDERED: Duoneb 2.5-0.5 M3 ML NEB (17:12)
[2019-09-30] MEDS ORDERED: SODCHL3.5O RIGHTEYE (17:13)
[2019-10-01 05:27] LABS: Hematocrit 30.2 % (37.0-53.0); Hemoglobin 10.2 g/dL (13.5-17.5); Mean Corpuscular HGB Conc 33.8 g/dL (31.5-36.5); Mean Corpuscular Volume 92 fL (80-100); Platelet Count 316 K/mm3 (150-400); RDW Coefficient Variation 13.7 % (11.7-14.2); RDW Standard Deviation 46.7 fL (35.1-46.3); Red Blood Cell Count 3.29 M/mm3 (4.30-5.90); White Blood Cell Count 14.42 K/mm3 (4.00-11.30)
[2019-10-01 05:58] LABS: Anion Gap 8 mmol/L (6-16); Blood Urea Nitrogen 23 mg/dL (8-24); Bun/Creatinine Ratio 36.2 (12.0-20.0); CO2, Blood 29 mmol/L (21-32); Calcium, Blood 8.6 mg/dL (8.5-10.1); Chloride, Blood 110 mmol/L (98-108); Creatinine, Blood 0.64 mg/dL (0.60-1.20); Glomerular Filtration Rate >60 (60-); Glucose, Blood 136 mg/dL (70-99); Sodium, Blood 147 mmol/L (136-145)
[2019-10-01 06:02] LABS: Potassium, Blood 2.3 mmol/L (3.5-5.5)
--- NOTE | 2019-10-01 06:11 | NUR ---
Lab called with critical potassium this morning of 2.3. call placed to MD. awaiting return call
--- NOTE | 2019-10-01 07:34 | NUR ---
PUBLIC HEALTH POLICY ANALYST SUMMARY Patient alert and oriented while awake during shift. Difficult to understand, but answers most questions appropriatly if he nicholas do so in short 2-3 word answers. Speech very garbled, Omi was suctioned multiple times last night, as mucous would pool in his right cheek which made it difficult to to speak, and easy to choke. Patient also expressed to his son in law, and in front of admitting RN, that he thinks he would like CPR "only if the doctors knew he would survive. plow holder informed. Mike has a palliative care conference today, so this will be mentioned in their meeting today. IN RESPONSE TO ABOVE NURSES NOTE, 40meq Potassium IV ordered by Hospitalist to be given this morning. will be explained to them.
--- NOTE | 2019-10-01 07:37 | NUR ---
TELE CALLED BY HOUSE PIPING INSPECTOR, PT TACHY 150-160, SUCTIONED PT AND INDUCED COUGHING, NO RESULTS, IV METOPROLOL GIVEN, PER HOUSE PIPING INSPECTOR IT ONLY WORKED FOR A BRIEF AMOUNT OF TIME, NOTIFIED SCALE MODEL MAKER'S, WILL CALL MD
--- NOTE | 2019-10-01 17:36 | NUR ---
SUMMARY PT RESTING QUIETLY IN BED, WAKES EASILY, DIFFICULT TO UNDERSTAND, BUT MAKES HIS NEEDS KNOWN WITH YES/NO QUESTIONS AND ANSWERS, PT CONT TO BE NPO, NEEDS OCC SUCTION, FAMILY HAS BEEN IN TO VISIT AND TO SPEAK WITH THE MD, PLAN WILL BE TO PLACE PEG TUBE DUE TO CONTINUED NPO STATUS, CALL TO GI SYSTEMS ENG, THEY CALLED BACK WITH INSTRUCTIONS TO CALL THE GEN SURG SYSTEMS ENG, CONSULT PLACED WITH DR BRAND, CURRENTLY PENDING HIS VISIT, PT TACHY OFF AND ON SEVERAL TIMES TODAY, IV METOPROLOL GIVEN PER EMAR, DR LOZANO AWARE OF RAPID RATE, PT ASYMPTOMATIC DURING TACHY PERIODS, CODE STATUS CHANGED TO FULL, WILL CONTINUE TO MONITOR
--- NOTE | 2019-10-01 22:14 | NUR ---
DR BRAND CALLED AND REPORTS TO HOLD PATIENT LOVENOX IN AM. ESTIMATING SURGERY 12:00 ON 10/02/2019. NEEDS DAY NURSE TO PROVIDE VERBAL OR WRITTEN FROM FAMILY/POA AND TO START CHECKING WITH THEM 08:00.
--- NOTE | 2019-10-02 04:19 | NUR ---
SHIFT SUMMARY PATIENT HAD NO ACUTE CHANGES OBSERVED. AXOX 2 ANSWERING YES/NO QUESTIONS. BEDREST AND NPO. PIVS REMAIN INTACT. IV ABX INFUSED. CUSTOMER CARE VOICE CONSULTANT REPORTS NSR 98. LOPEZ PATENT AND DRAINING. VSS/AFEBRILE. NO S/SX OF PAIN, SOB, AND N/V. NEEDS OCC SUCTIONING. DR BRAND REPORTS SURGERY FOR PEG TUBE AROUND 12:00 ON 10/02/19. HOLD AM LOVENOX. ALSO REPORTS TO HAVE DAY RN GET VERBAL OR WRITTEN CONSENT FROM FAMILY/POA FOR SURGERY. DAY RN CAN START TO CALL 08:00. CALL LIGHT IN REACH. BED IN LOWEST POSITION. WILL CONTINUE TO MONITOR UNTIL DAY SHIFT NURSE ASSUMES CARE.
[2019-10-02 04:55] LABS: BASOPHILS ABSOLUTE AUTO 0.01 K/mm3 (0.00-0.23); BASOPHILS PERCENT AUTO 0 % (0-2); EOSINOPHILS ABSOLUTE AUTO 0.11 K/mm3 (0.00-0.68); EOSINOPHILS PERCENT AUTO 1 % (0-6); Hematocrit 31.3 % (37.0-53.0); Hemoglobin 10.3 g/dL (13.5-17.5); IMMATURE GRAN ABSOLUTE AUTO 0.08 K/mm3 (0.00-0.10); IMMATURE GRAN PERCENT AUTO 1 % (0-1); LYMPHOCYTES ABSOLUTE AUTO 2.31 K/mm3 (0.84-5.20); LYMPHOCYTES PERCENT AUTO 19 % (21-46); MONOCYTES ABSOLUTE AUTO 0.66 K/mm3 (0.16-1.47); MONOCYTES PERCENT AUTO 5 % (4-13); Mean Corpuscular HGB 30.5 pg (26.0-34.0); Mean Corpuscular HGB Conc 32.9 g/dL (31.5-36.5); Mean Corpuscular Volume 93 fL (80-100); Mean Platelet Volume 9.7 fL (9.1-12.4); NEUTROPHILS ABSOLUTE AUTO 9.25 K/mm3 (1.96-9.15); NEUTROPHILS PERCENT AUTO 75 % (41-73); Platelet Count 356 K/mm3 (150-400); RDW Coefficient Variation 13.5 % (11.7-14.2); RDW Standard Deviation 46.3 fL (35.1-46.3); Red Blood Cell Count 3.38 M/mm3 (4.30-5.90); White Blood Cell Count 12.42 K/mm3 (4.00-11.30)
--- NOTE | 2019-10-02 05:31 | NUR ---
MYLES HELD FOR SURGERY PER DR BRAND.
[2019-10-02 05:38] LABS: Anion Gap 8 mmol/L (6-16); Blood Urea Nitrogen 18 mg/dL (8-24); Bun/Creatinine Ratio 27.1 (12.0-20.0); CO2, Blood 31 mmol/L (21-32); Calcium, Blood 8.5 mg/dL (8.5-10.1); Chloride, Blood 108 mmol/L (98-108); Creatinine, Blood 0.67 mg/dL (0.60-1.20); Glomerular Filtration Rate >60 (60-); Glucose, Blood 113 mg/dL (70-99); Sodium, Blood 147 mmol/L (136-145)
[2019-10-02 05:40] LABS: Potassium, Blood 2.2 mmol/L (3.5-5.5)
--- NOTE | 2019-10-02 06:02 | NUR ---
cL POTASSIUM 2.[address] CARSON ORDERED IV KCL 40 MEQ AND PHARMACY CHANGED TO IV KCL 20 MEQ/100mL X 2.
--- NOTE | 2019-10-02 06:53 | NUR ---
SURGEON CHIEF REPORTS HR OF 180. IV LOPRESSOR 5 MG GIVEN PER EMAR WITH TELEMTRY MONITORING. WILL CONTINUE TO MONITOR.
--- NOTE | 2019-10-02 06:55 | NUR ---
EVENT MANAGEMENT CONSULTANT REPORTS HR DOWN TO 102 TO 105 FROM 180.
--- NOTE | 2019-10-02 19:16 | NUR ---
SHIFT SUMMARY: NO ACUTE CHANGES TO REPORT THIS SHIFT. PT A&O X2-3; CALM AND COOEPRATIVE WITH CARE. PATIENT REMAINS NPO; AWAITING PEG TUBE PLACEMENT; POTASSIUM LEVEL TOO LOW TO PERFORM SURGERY TODAY; MULTIPLE K+ RIDERS THIS SHIFT; SURGERY PLANNED FOR 10/03 PENDING K+ LEVELS IN AM. REPORT GIVEN TO ONCOMING RN.
--- NOTE | 2019-10-03 03:29 | NUR ---
SHIFT SUMMARY PATIENT HAD NO ACUTE CHANGES OBSERVED. AXOX 2-3 AND BEDFAST/NPO. ANSWERS YES/NO QUESTIONS. PIVS REMAIN INTACT. IV ABX INFUSED. IV K+ RIDERS FINISHED THIS SHIFT. POSSIBLE SURGERY PENDING K+ LEVELS. CLERGY MEMBER REPORTS ST 101 W/OCC PVC'S. AM LOVENOX TO BE HELD FOR SURGERY. LOPEZ PATENT AND DRAINING. VSS/AFEBRILE. DENIES PAIN, SOB, AND N/V. CALL LIGHT IN REACH. BED IN LOWEST POSITION. WILL CONTINUE TO MONITOR UNTIL DAY SHIFT NURSE ASSUMES CARE.
[2019-10-03 05:49] LABS: BASOPHILS ABSOLUTE AUTO 0.02 K/mm3 (0.00-0.23); BASOPHILS PERCENT AUTO 0 % (0-2); EOSINOPHILS ABSOLUTE AUTO 0.34 K/mm3 (0.00-0.68); EOSINOPHILS PERCENT AUTO 3 % (0-6); Hematocrit 33.6 % (37.0-53.0); Hemoglobin 10.9 g/dL (13.5-17.5); IMMATURE GRAN ABSOLUTE AUTO 0.06 K/mm3 (0.00-0.10); IMMATURE GRAN PERCENT AUTO 1 % (0-1); LYMPHOCYTES ABSOLUTE AUTO 2.36 K/mm3 (0.84-5.20); LYMPHOCYTES PERCENT AUTO 18 % (21-46); MONOCYTES ABSOLUTE AUTO 0.53 K/mm3 (0.16-1.47); MONOCYTES PERCENT AUTO 4 % (4-13); Mean Corpuscular HGB 30.4 pg (26.0-34.0); Mean Corpuscular HGB Conc 32.4 g/dL (31.5-36.5); Mean Corpuscular Volume 94 fL (80-100); Mean Platelet Volume 9.5 fL (9.1-12.4); NEUTROPHILS PERCENT AUTO 75 % (41-73); Platelet Count 346 K/mm3 (150-400); RDW Coefficient Variation 13.6 % (11.7-14.2); RDW Standard Deviation 46.8 fL (35.1-46.3); Red Blood Cell Count 3.59 M/mm3 (4.30-5.90); White Blood Cell Count 13.31 K/mm3 (4.00-11.30)
[2019-10-03 06:21] LABS: Alanine Aminotransfer (ALT/SGP 26 U/L (12-78); Albumin, Blood 2.3 g/dL (3.4-5.0); Albumin/Globulin Ratio 0.5 (0.8-1.8); Alk Phos 90 U/L (50-136); Anion Gap 8 mmol/L (6-16); Aspartate Aminotrans (AST/SGOT 38 U/L (12-37); Bilirubin, Total 0.4 mg/dL (0.1-1.0); Blood Urea Nitrogen 19 mg/dL (8-24); Bun/Creatinine Ratio 28.5 (12.0-20.0); CO2, Blood 30 mmol/L (21-32); Calcium, Blood 8.4 mg/dL (8.5-10.1); Chloride, Blood 107 mmol/L (98-108); Creatinine, Blood 0.67 mg/dL (0.60-1.20); Glomerular Filtration Rate >60 (60-); Glucose, Blood 104 mg/dL (70-99); Potassium, Blood 2.7 mmol/L (3.5-5.5); Sodium, Blood 145 mmol/L (136-145); Total Protein, Blood 7.3 g/dL (6.4-8.2)
--- NOTE | 2019-10-03 19:36 | NUR ---
SHIFT SUMMARY: PT ALERT; ORIENTED TO SELF AND FAMILY. NO C/O PAIN OR NAUSEA THIS SHIFT. PEG TUBE PLACEMENT RESCHEDULED R/T LOW POTASSIUM; K+ RIDERS (X3) THIS SHIFT. IV ABX CONTINUING. CLINIMIX @ 125 STARTED THIS SHIFT; PT TOLERATING WELL. REPORT GIVEN TO ONCOMING RN.
--- NOTE | 2019-10-04 03:22 | NUR ---
SHIFT SUMMARY PATIENT HAD NO ACUTE CHANGE OBSERVED. AXO X 2-3 ANSWERING YES/NO QUESTIONS AND BEDFAST. PIV REMAINS INTACT. IV ABX INFUSED. CLINIMIX INFUSING AT 125ml/HR. SHIP FASTENER REPORTS SINUS AT 100. LOPEZ PATENT AND DRAINING. NPO. VSS/AFEBRILE. NO S/SX OF PAIN, SOB, AND N/V. PATIENT MORE ALERT THAN LAST NOC SHIFT. PEG TUBE PLACEMENT PENDING K+ LABS IN AM. CALL LIGHT IN REACH. BED IN LOWEST POSITION. WILL CONTINUE TO MONITOR UNTIL DAY SHIFT NURSE ASSUMES CARE.
[2019-10-04 05:59] LABS: BASOPHILS ABSOLUTE AUTO 0.03 K/mm3 (0.00-0.23); BASOPHILS PERCENT AUTO 0 % (0-2); EOSINOPHILS ABSOLUTE AUTO 0.46 K/mm3 (0.00-0.68); EOSINOPHILS PERCENT AUTO 4 % (0-6); Hematocrit 33.2 % (37.0-53.0); Hemoglobin 10.7 g/dL (13.5-17.5); IMMATURE GRAN ABSOLUTE AUTO 0.06 K/mm3 (0.00-0.10); IMMATURE GRAN PERCENT AUTO 1 % (0-1); LYMPHOCYTES ABSOLUTE AUTO 2.38 K/mm3 (0.84-5.20); LYMPHOCYTES PERCENT AUTO 19 % (21-46); MONOCYTES ABSOLUTE AUTO 0.51 K/mm3 (0.16-1.47); MONOCYTES PERCENT AUTO 4 % (4-13); Mean Corpuscular HGB 30.3 pg (26.0-34.0); Mean Corpuscular HGB Conc 32.2 g/dL (31.5-36.5); Mean Corpuscular Volume 94 fL (80-100); Mean Platelet Volume 9.5 fL (9.1-12.4); NEUTROPHILS ABSOLUTE AUTO 9.27 K/mm3 (1.96-9.15); NEUTROPHILS PERCENT AUTO 73 % (41-73); Platelet Count 402 K/mm3 (150-400); RDW Coefficient Variation 13.6 % (11.7-14.2); RDW Standard Deviation 46.8 fL (35.1-46.3); Red Blood Cell Count 3.53 M/mm3 (4.30-5.90); White Blood Cell Count 12.71 K/mm3 (4.00-11.30)
[2019-10-04 06:19] LABS: Magnesium, Blood 1.7 mg/dL (1.6-2.4)
[2019-10-04 06:24] LABS: Anion Gap 7 mmol/L (6-16); Blood Urea Nitrogen 23 mg/dL (8-24); CO2, Blood 31 mmol/L (21-32); Calcium, Blood 8.5 mg/dL (8.5-10.1); Chloride, Blood 104 mmol/L (98-108); Creatinine, Blood 0.56 mg/dL (0.60-1.20); Glomerular Filtration Rate >60 (60-); Glucose, Blood 175 mg/dL (70-99); Potassium, Blood 3.2 mmol/L (3.5-5.5); Sodium, Blood 142 mmol/L (136-145)
--- NOTE | 2019-10-04 14:31 | NUR ---
THIS BRACELET AND BROOCH MAKER SPOKE WITH PATIENT AT 1415 FOR PERMISSION TO HELP WITH HIS CARE ON 10/05/2019 AT [phone]. PATIENT AGREED.
--- NOTE | 2019-10-04 16:30 | NUR ---
PT TRANSFERED TO [facility]IA [facility] FROM [facility]. VSS. History, Chart, Medications and Allergies reviewed before start of procedure.Patient confirms NPO status and agrees with scheduled surgery. LUNGS WITH BILATERAL CRACKLES.
--- NOTE | 2019-10-04 17:03 | NUR ---
10/04/19 1709 ADA SANDRA History, Chart, Medications and Allergies reviewed before start of procedure.3-LEAD EKG REVIEWED WITH PHYSICIAN PRIOR TO START OF PROCEDURE.O2 VIA N/C INTACT THROUGHOUT SEDATION/PROCEDURE. MONITOR INTACT WITH CONTINUOUS PULSE OXIMETRY AND INTERMITTENT BP. MAC WITH DR. CROOKS
--- NOTE | 2019-10-04 17:46 | NUR ---
PATIENT ARRIVED BACK FROM DAY SURGERY WITH G-TUBE IN PLACE. PATIENT DENIES ANY PAIN OR NAUSEA. VSS, ON RA. REMAINS SLEEPING, BUT WKAES EASILY. TUBE OK FOR USE STARTING 10/05/19.
[2019-10-05 05:27] LABS: BASOPHILS ABSOLUTE AUTO 0.05 K/mm3 (0.00-0.23); BASOPHILS PERCENT AUTO 0 % (0-2); EOSINOPHILS ABSOLUTE AUTO 0.46 K/mm3 (0.00-0.68); EOSINOPHILS PERCENT AUTO 3 % (0-6); Hematocrit 34.5 % (37.0-53.0); IMMATURE GRAN ABSOLUTE AUTO 0.07 K/mm3 (0.00-0.10); IMMATURE GRAN PERCENT AUTO 1 % (0-1); LYMPHOCYTES ABSOLUTE AUTO 3.12 K/mm3 (0.84-5.20); LYMPHOCYTES PERCENT AUTO 22 % (21-46); MONOCYTES ABSOLUTE AUTO 0.63 K/mm3 (0.16-1.47); MONOCYTES PERCENT AUTO 4 % (4-13); Mean Corpuscular HGB 30.2 pg (26.0-34.0); Mean Corpuscular HGB Conc 31.9 g/dL (31.5-36.5); Mean Corpuscular Volume 95 fL (80-100); Mean Platelet Volume 9.7 fL (9.1-12.4); NEUTROPHILS ABSOLUTE AUTO 10.16 K/mm3 (1.96-9.15); NEUTROPHILS PERCENT AUTO 70 % (41-73); Platelet Count 417 K/mm3 (150-400); RDW Coefficient Variation 13.5 % (11.7-14.2); RDW Standard Deviation 47.4 fL (35.1-46.3); Red Blood Cell Count 3.64 M/mm3 (4.30-5.90); White Blood Cell Count 14.49 K/mm3 (4.00-11.30)
[2019-10-05 05:49] LABS: Anion Gap 8 mmol/L (6-16); Blood Urea Nitrogen 30 mg/dL (8-24); CO2, Blood 28 mmol/L (21-32); Calcium, Blood 8.7 mg/dL (8.5-10.1); Chloride, Blood 100 mmol/L (98-108); Creatinine, Blood 0.53 mg/dL (0.60-1.20); Glomerular Filtration Rate >60 (60-); Glucose, Blood 139 mg/dL (70-99); Phosphorus, Blood 3.4 mg/dL (2.5-4.9); Potassium, Blood 3.8 mmol/L (3.5-5.5); Sodium, Blood 136 mmol/L (136-145)
--- NOTE | 2019-10-05 06:19 | NUR ---
SHIFT SUMMARY: RESPS ELEVATAED BETWEEN 16 AND 28 RESPS/MIN TONIGHT. 02 SATS 94-97% ON RA. PT HOB REMAINS ELEVATED AT >45 DEGREES. NO RESP DISTRESS. PT DENIES FEELING SOB. NO CYANOSIS OBSERVED. ORAL SUCTIONING PERFORMED, REMOVED SMALL TO MOD AMTS OF WHITE FROTHY SPUTUM USING YANKAUER. RHONCHI AUSCULTATED TO UPPER AND MID LOBES BILATERALLY. BASES DIM. WET PRODUCTIVE SOUNDING, WEAK COUGH. WHEN ENCOURAGED TO FORCE A COUGH, PT WEAKLY CLEARS THROUGH. ORAL CARE PERFORMED. PEG TUBE IN PLACE, COILED ON L ABD. SCANT DRAINAGE ON DRAIN SPONGE. PT DENIES PAIN. REMAINS BEDREST. F/C REMOVED AT 5 AM AFTER PT MORE ALERT AND AWAKE. NO VOID NOTED YET. BED LOW, BED ALARM ON, CALL BUTTON IN REACH. WILL CONT TO MONITOR.
--- NOTE | 2019-10-05 12:56 | NUR ---
Pt resting in bed upon arrival. He denies pain and dyspnea at this time. Pt appears comfortable with no S/S of distress at this time. Pt difficult to understand but reports no concerns at this time. Pt agreeable for this RN to come back and visit with family is present. Spoke with bedside RN Deysi and discussed case. Plan for Palliative Care to discuss code status with Pt when family is present. Current POLST on file for Pt's wishes are DNR with Limited Medical Interventions. Currently Full Code.
--- NOTE | 2019-10-05 13:01 | NUR ---
Permission of care was given 1301 on 10/05/2019.
--- NOTE | 2019-10-05 17:48 | NUR ---
PATIENT STARTED ON CONTINUOUS TUBE FEEDS TODAY AND NOW ADVANCED TO BOLUS FEEDS. PATIENT TOLERATING WELL. MEDS CRUSHED AND GIVEN VIA PEG TUBE. VSS, REMAINS ST ON TELE. SKIN TEAR TO L BUTTOCKS, MEPILEX APPLIED. MEPILEX TO HEELS BILATERALLY FOR PROTECTION. PATIENT REQUIRES FREQUENT ORAL CARE AND SUCTIONING. 2 IV SITE WNL AND SL. LOPEZ PULLED THIS AM AND PATIENT HAD ONE LARGE INCONTINENT VOID. BLADDER SCANNED X1 FOR 288ML'S. PATIENT HAS SINCE VOIDED A SMALL AMOUNT IN URINAL AND ANOTHER SMALL INCONTINENT VOID. PLAN IS TO DC BACK TO [facility].
[2019-10-06 04:31] LABS: BASOPHILS ABSOLUTE AUTO 0.02 K/mm3 (0.00-0.23); BASOPHILS PERCENT AUTO 0 % (0-2); EOSINOPHILS ABSOLUTE AUTO 0.36 K/mm3 (0.00-0.68); EOSINOPHILS PERCENT AUTO 3 % (0-6); Hemoglobin 9.9 g/dL (13.5-17.5); IMMATURE GRAN ABSOLUTE AUTO 0.06 K/mm3 (0.00-0.10); IMMATURE GRAN PERCENT AUTO 1 % (0-1); LYMPHOCYTES ABSOLUTE AUTO 3.21 K/mm3 (0.84-5.20); LYMPHOCYTES PERCENT AUTO 27 % (21-46); MONOCYTES ABSOLUTE AUTO 0.71 K/mm3 (0.16-1.47); MONOCYTES PERCENT AUTO 6 % (4-13); Mean Corpuscular HGB 30.6 pg (26.0-34.0); Mean Corpuscular Volume 93 fL (80-100); Mean Platelet Volume 9.6 fL (9.1-12.4); NEUTROPHILS ABSOLUTE AUTO 7.53 K/mm3 (1.96-9.15); NEUTROPHILS PERCENT AUTO 63 % (41-73); Platelet Count 395 K/mm3 (150-400); RDW Coefficient Variation 13.5 % (11.7-14.2); Red Blood Cell Count 3.24 M/mm3 (4.30-5.90); White Blood Cell Count 11.89 K/mm3 (4.00-11.30)
[2019-10-06 04:46] LABS: Anion Gap 5 mmol/L (6-16); Blood Urea Nitrogen 36 mg/dL (8-24); Bun/Creatinine Ratio 47.7 (12.0-20.0); CO2, Blood 33 mmol/L (21-32); Calcium, Blood 8.1 mg/dL (8.5-10.1); Chloride, Blood 97 mmol/L (98-108); Creatinine, Blood 0.75 mg/dL (0.60-1.20); Glomerular Filtration Rate >60 (60-); Glucose, Blood 104 mg/dL (70-99); Potassium, Blood 3.7 mmol/L (3.5-5.5); Sodium, Blood 135 mmol/L (136-145)
--- NOTE | 2019-10-06 08:57 | NUR ---
HARNESS INSTALLER SUMMARY Mike slept most of the night. This RN suctioned his oral cavity at least 4-5 times due to pooling of secretions in his right cheek that he is not able to mobilize. Gentle ROM left arm and fingers performed after washing hands (especially left) with warm cloth. Washcloth rolled up inside senior account executive. No residuals noted overnight. Patient tolerating bolus tube feedings with Jevitiy 1.5 and water flushes and hydration. no complaints of pain, SOB or discomfort overnight
--- NOTE | 2019-10-06 13:05 | NUR ---
Pt resting in bed and denies pain at this time. Pt's family at bedside. Pt denies pain and dyspnea at this time. Engaged in therapeutic disucssion regarding code status and POLST on file. Educated on life sustaining measures including risk factors and implications. Listened as family and Pt discusses Pt's wishes. Pt wishes for no chest compression but would like defebrilation if indicated. Educated on criteria for defibrilation for shockable rythms with V/U made by Pt and family. Pt does not want to be intubated and would like limited medical interventions. Completed new POLST with Pt and family. Pt's son in law Bill (POA) signs POLST for Pt. No other concerns reported at this time. Spoke with Dr Colon and discussed case. Dr Colon signs POLST. Provided copies and original POLST back to family. Placed copy of POLST in Pt's hard chart, and faxed medical records copy. Palliative Care will remain available.
--- NOTE | 2019-10-06 14:30 | NUR ---
Echocardiogram performed.
--- NOTE | 2019-10-06 18:14 | NUR ---
SHIFT SUMMARY PT AXO TO SELF AND FAMILY, GARBLED SPEECH. L. SIDED WEAKNESS. VSS. IV PATENT AND SALINE LOCKED. CBG Q6, SEE LAB, NO COVERAGE INDICATED. PT TOLERATED FEEDINGS OF JEVITY 1.5 AND FLUSHES WELL. RESIDUAL WAS 90ML AND 140 ML. ECHO COMPLETED THIS SHIFT, SEE RESULTS. NO OTHER CHANGES THIS SHIFT. BED IN LOW POSITION, CALL LIGHT WITHIN REACH, FREQUENT ROUNDING.
--- NOTE | 2019-10-06 22:57 | NUR ---
PT FOUND TO BE HYPOTENSIVE. SBP 86. PROVIDER CALLED. LAMIN ORDERED LITER NS/ HOUR. PT CONTINUES TO HAVE VOIDS NOTED. PT RR IS IN 30'S. PT DENIES SOB AND NO FEVER NOTED. SPO2 >90% RA.
--- NOTE | 2019-10-07 00:52 | NUR ---
PROVIDER CALLED WHEN PT EMP HIT 100. PROVIDER ORDERED TO GIVE TYLENOL AND WAS GIVEN.
[2019-10-07 05:10] LABS: BASOPHILS ABSOLUTE AUTO 0.03 K/mm3 (0.00-0.23); BASOPHILS PERCENT AUTO 0 % (0-2); EOSINOPHILS ABSOLUTE AUTO 0.31 K/mm3 (0.00-0.68); EOSINOPHILS PERCENT AUTO 3 % (0-6); Hematocrit 27.9 % (37.0-53.0); Hemoglobin 9.1 g/dL (13.5-17.5); IMMATURE GRAN ABSOLUTE AUTO 0.06 K/mm3 (0.00-0.10); IMMATURE GRAN PERCENT AUTO 1 % (0-1); LYMPHOCYTES PERCENT AUTO 24 % (21-46); MONOCYTES ABSOLUTE AUTO 0.77 K/mm3 (0.16-1.47); MONOCYTES PERCENT AUTO 6 % (4-13); Mean Corpuscular HGB 30.4 pg (26.0-34.0); Mean Corpuscular HGB Conc 32.6 g/dL (31.5-36.5); Mean Corpuscular Volume 93 fL (80-100); Mean Platelet Volume 9.5 fL (9.1-12.4); NEUTROPHILS PERCENT AUTO 66 % (41-73); Platelet Count 380 K/mm3 (150-400); RDW Coefficient Variation 13.4 % (11.7-14.2); Red Blood Cell Count 2.99 M/mm3 (4.30-5.90); White Blood Cell Count 11.97 K/mm3 (4.00-11.30)
[2019-10-07 05:33] LABS: Anion Gap 6 mmol/L (6-16); Blood Urea Nitrogen 33 mg/dL (8-24); Bun/Creatinine Ratio 44.4 (12.0-20.0); CO2, Blood 30 mmol/L (21-32); Calcium, Blood 7.7 mg/dL (8.5-10.1); Chloride, Blood 96 mmol/L (98-108); Creatinine, Blood 0.74 mg/dL (0.60-1.20); Glomerular Filtration Rate >60 (60-); Glucose, Blood 109 mg/dL (70-99); Phosphorus, Blood 2.5 mg/dL (2.5-4.9); Potassium, Blood 3.7 mmol/L (3.5-5.5); Sodium, Blood 132 mmol/L (136-145)
--- NOTE | 2019-10-07 05:55 | NUR ---
SHIFT SUMMARY PT HAS HAD SOME ISSUES NOTED WITH HYPOTENSION, RESP. RATE AND TEMPERTURE. PROVIDER WAS CALLED SEVERAL TIMES. LAMIN ORDERED LITER OF NS AND TYLENOL. A ORDER FOR STRAIGHT CATH AFTER PT FOUND TO BE RETAINING 662 ML. WITH TX'S PT VS HAVE IMPROVED. PT DENIED ANY SOB DURING THE SHIFT. PT TOLERATED FEEDING BOLUS WELL AND PEG SITE LOOKS UNREMARKABLE. PT CURRENTLY SLEEPING AND BREATHING EASY. CALL LIGHT IN REACH.
--- NOTE | 2019-10-07 18:24 | NUR ---
SHIFT SUMMARY PT HAS BEEN TOLERATING TUBE FEEDINGS THIS SHIFT. PT ABLE TO TELL NURSE YES/NO WHEN ASKED QUESTION. THIS RN HAD TO STRAIGHT CATH PT THIS EVENING. PT HAD AN INCONTINENT VOID AND STOOL BUT STILL HAD 678 ML IN BLADDER. DRAINED 600 ML WITH STRAIGHT CATH. NO ACUTE CHANGES. PLANS FOR PT TO BE DISCHARGED TO [facility] TOMORROW. WILL CONTINUE TO MONITOR AND REPORT TO ONCOMING RN.
--- NOTE | 2019-10-08 04:55 | NUR ---
SHIFT SUMMARY PT WAS FOUND TO BE RETAINING AND ORDER FOR STRAIGHT CATH WAS RECIEVED. PT CARDIZEM WAS HELD BY PROVIDER THIS SHIFT. PT TEMP BEGAN TO TREND UP AND TYLENOL WAS GIVEN WITH REDUCTION IN TEMP. PT HAS BEEN SUCTIONED NEEDED. PT TOLERATED BOLUS FEEDING WELL. PT HAS SLEPT T/O SHIFT. CALL LIGHT IN REACH.
[2019-10-08 05:58] LABS: BASOPHILS ABSOLUTE AUTO 0.02 K/mm3 (0.00-0.23); BASOPHILS PERCENT AUTO 0 % (0-2); EOSINOPHILS ABSOLUTE AUTO 0.34 K/mm3 (0.00-0.68); EOSINOPHILS PERCENT AUTO 3 % (0-6); Hematocrit 26.8 % (37.0-53.0); Hemoglobin 8.7 g/dL (13.5-17.5); IMMATURE GRAN ABSOLUTE AUTO 0.09 K/mm3 (0.00-0.10); IMMATURE GRAN PERCENT AUTO 1 % (0-1); LYMPHOCYTES ABSOLUTE AUTO 2.83 K/mm3 (0.84-5.20); LYMPHOCYTES PERCENT AUTO 25 % (21-46); MONOCYTES ABSOLUTE AUTO 0.94 K/mm3 (0.16-1.47); MONOCYTES PERCENT AUTO 8 % (4-13); Mean Corpuscular HGB Conc 32.5 g/dL (31.5-36.5); Mean Corpuscular Volume 92 fL (80-100); NEUTROPHILS ABSOLUTE AUTO 7.14 K/mm3 (1.96-9.15); NEUTROPHILS PERCENT AUTO 63 % (41-73); Platelet Count 425 K/mm3 (150-400); RDW Coefficient Variation 13.4 % (11.7-14.2); RDW Standard Deviation 45.8 fL (35.1-46.3); White Blood Cell Count 11.36 K/mm3 (4.00-11.30)
[2019-10-08 06:10] LABS: Anion Gap 7 mmol/L (6-16); Blood Urea Nitrogen 25 mg/dL (8-24); Bun/Creatinine Ratio 37.2 (12.0-20.0); CO2, Blood 29 mmol/L (21-32); Calcium, Blood 7.9 mg/dL (8.5-10.1); Chloride, Blood 97 mmol/L (98-108); Creatinine, Blood 0.67 mg/dL (0.60-1.20); Glomerular Filtration Rate >60 (60-); Glucose, Blood 104 mg/dL (70-99); Phosphorus, Blood 2.3 mg/dL (2.5-4.9); Potassium, Blood 3.7 mmol/L (3.5-5.5); Sodium, Blood 133 mmol/L (136-145)
[2019-10-08] MEDS ORDERED: METO25 PT (09:03)
[2019-10-08] MEDS ORDERED: LEVFLO500 PT (09:07)
[2019-10-08] MEDS ORDERED: TAMS.4ER PT (09:07)
--- NOTE | 2019-10-08 15:37 | NUR ---
1528 PT DISCHARGED TO [facility] VIA GURNEY TRANSPORT. IV REMOVED. PT TOLERATED TF WELL THIS SHIFT. ORAL SUCTIONED 3 TIMES. NO NEW CHANGES OR CONCERNS. 1530 REPORT G[address] TO LN AT [facility].
== END 2019-10-08 15:28 | DRG 871 ==
LOC: ER 14:41 → MEDS 16:32 → ENPENDDIS 10-08 09:55 → MEDS 10-08 15:28
PROVIDERS: Emergency Medicine; Family Medicine; Internal Medicine; Surgery; ADMIT Internal Medicine
PROC: 0DJ08ZZ Inspection of Upper Intestinal Tract, Via Natural or Artificial Opening Endoscopic (ICD-10-PCS; 2019-10-04)
PROC: 0DH63UZ Insertion of Feeding Device into Stomach, Percutaneous Approach (ICD-10-PCS; principal; 2019-10-04 14:00)
DX: A41.01 Sepsis due to Methicillin susceptible Staphylococcus aureus (principal); J69.0 Pneumonitis due to inhalation of food and vomit; I63.81 Other cerebral infarction due to occlusion or stenosis of small artery; I48.20 Chronic atrial fibrillation, unspecified; I50.32 Chronic diastolic (congestive) heart failure; N39.0 Urinary tract infection, site not specified; E87.1 Hypo-osmolality and hyponatremia; I69.354 Hemiplegia and hemiparesis following cerebral infarction affecting left non-dominant side; E87.0 Hyperosmolality and hypernatremia; I48.92 Unspecified atrial flutter; I11.0 Hypertensive heart disease with heart failure; E11.9 Type 2 diabetes mellitus without complications; E87.6 Hypokalemia; G40.909 Epilepsy, unspecified, not intractable, without status epilepticus; E03.9 Hypothyroidism, unspecified; I35.0 Nonrheumatic aortic (valve) stenosis; E78.5 Hyperlipidemia, unspecified; R13.10 Dysphagia, unspecified; D64.9 Anemia, unspecified; E83.39 Other disorders of phosphorus metabolism; D47.3 Essential (hemorrhagic) thrombocythemia; R33.9 Retention of urine, unspecified; Z66 Do not resuscitate; Z79.01 Long term (current) use of anticoagulants
CPT/HCPCS: 36415; 51702; 70450; 71045; 71046; 72040; 80048; 80053; 80069; 81001; 82947; 83605; 83735; 84100; 84132; 85025; 85027; 85610; 87040; 87077; 87086; 87147; 87186; 92610; 93005; 93010; 94640; 94760; 96361; 96365; 96375; 99285-25; A9270; A9270-GY; C1769; C8929; J0690; J0696; J1200; J1650; J2370; J2543; J2560; J2704; J3370; J3475; J3480; J7030; J7050; J7120

== ENCOUNTER 2019-10-13 03:56 | Inpatient (IN) | payer OTHER, MEDICARE ==
[~2019-10-13] VITALS: Ht 182.9 cm; Wt 69.4 kg
[~2019-10-13 03:56] MED LIST changes: +ACET325 PT; +ALLEGRA ALLERG180 MG PO; +ATOR40TA PT; +BACL10 PO; +CATAPRES-TTS 31 EACH TOP; +CHLO25B PO; +Citalopram HBr10 MG PT; +DILTIAZEM 24HR300 M2 PO; +DOCU100 PO; +Duoneb 2.5-0.5 M3 ML NEB; +ELIQUIS2.5 MG PT; +EUCERIN TOP; +LEVFLO500 PT; +LEVSOD100 PT; +LOSA50 PO; +MELA3 PT; +METF500 PT; +METO100 PO; +METO25 PT; +NITR100CA PO; +PHENOBARBITAL PT; +POTA10T PT; +Refresh Plus1 EACH BOTHEYES; +SODCHL3.5O RIGHTEYE; +TAMS.4ER PT; +TRAM50 PO; +TRAZ50 PO; +TRIA15CR3 TOP
[2019-10-13 04:16] LABS: BASOPHILS ABSOLUTE AUTO 0.07 K/mm3 (0.00-0.23); BASOPHILS PERCENT AUTO 0 % (0-2); EOSINOPHILS ABSOLUTE AUTO 0.18 K/mm3 (0.00-0.68); EOSINOPHILS PERCENT AUTO 1 % (0-6); Hematocrit 30.6 % (37.0-53.0); Hemoglobin 10.2 g/dL (13.5-17.5); IMMATURE GRAN ABSOLUTE AUTO 0.06 K/mm3 (0.00-0.10); IMMATURE GRAN PERCENT AUTO 0 % (0-1); LYMPHOCYTES ABSOLUTE AUTO 3.46 K/mm3 (0.84-5.20); LYMPHOCYTES PERCENT AUTO 22 % (21-46); MONOCYTES ABSOLUTE AUTO 1.35 K/mm3 (0.16-1.47); MONOCYTES PERCENT AUTO 9 % (4-13); Mean Corpuscular HGB 30.7 pg (26.0-34.0); Mean Corpuscular HGB Conc 33.3 g/dL (31.5-36.5); Mean Corpuscular Volume 92 fL (80-100); Mean Platelet Volume 9.4 fL (9.1-12.4); NEUTROPHILS ABSOLUTE AUTO 10.53 K/mm3 (1.96-9.15); NEUTROPHILS PERCENT AUTO 67 % (41-73); Platelet Count 551 K/mm3 (150-400); RDW Coefficient Variation 13.7 % (11.7-14.2); RDW Standard Deviation 46.6 fL (35.1-46.3); Red Blood Cell Count 3.32 M/mm3 (4.30-5.90); White Blood Cell Count 15.65 K/mm3 (4.00-11.30)
[2019-10-13 04:24] LABS: PCO2 Arterial 39.4 mmHg (35-45); PO2 Arterial 56.7 mmHg (80-100); pH Blood Arterial 7.44 (7.35-7.45)
[2019-10-13 04:41] LABS: Alanine Aminotransfer (ALT/SGP 33 U/L (12-78); Albumin, Blood 2.4 g/dL (3.4-5.0); Albumin/Globulin Ratio 0.4 (0.8-1.8); Alk Phos 110 U/L (50-136); Anion Gap 9 mmol/L (6-16); Aspartate Aminotrans (AST/SGOT 45 U/L (12-37); Bilirubin, Total 0.1 mg/dL (0.1-1.0); Blood Urea Nitrogen 28 mg/dL (8-24); Bun/Creatinine Ratio 40.9 (12.0-20.0); CO2, Blood 27 mmol/L (21-32); Calcium, Blood 8.5 mg/dL (8.5-10.1); Chloride, Blood 95 mmol/L (98-108); Creatinine, Blood 0.68 mg/dL (0.60-1.20); Globulin, Blood 5.6 g/dL (2.2-4.0); Glomerular Filtration Rate >60 (60-); Glucose, Blood 109 mg/dL (70-99); Potassium, Blood 4.4 mmol/L (3.5-5.5); Sodium, Blood 131 mmol/L (136-145); Troponin I <0.015 ng/mL (0.000-0.040)
--- NOTE | 2019-10-13 07:29 | NUR ---
ASSUMED CARE RECIEVED REPORT FROM FRED CHERRY. PT IS IN BED ON BIPAP 05/29 WITH A HR IN THE 140'S, SAT'S 88-91, BP 114/86. HE IS NOT COMMUNICATING, BUT NOT SURE IF THAT IS HIS BASELINE. HE DOES FOLLOW COMMANDS. LUNGS SOUND VERY COARSE.
--- NOTE | 2019-10-13 08:15 | NUR ---
UPDATE CALLED [facility] FOR HR CONTROL, DECIDED TO GIVE 5MG LOPRESSOR IV NOW. HR HAS SINCE COME BACK DOWN TO 115-125 (FROM 140-150). THE ALTERNATIVE WAS USING A CARDIZEM DRIP, BUT WILL HOLD OFF FOR NOW. PT LIKES TO TAKE BIPAP OFF. BUT WITH BIPAP ON FIO2 WAS TURNED UP TO 40% AND HE IS SAT'ING LOW 90'S.
--- NOTE | 2019-10-13 08:50 | NUR ---
UPDATE CALLED [facility] FOR BREATHING TREATMENT ORDERS ON . HIS RATE IS 34-38, SAT'S LOW 90'S WITH A POOR WAVEFORM. HE IS LETHARGIC, BUT IS AROUSABLE, AND FOLLOWS DIRECTIONS WHEN STIMULATED. DOESN'T USE WORDS WITH ME. HR REMAINS STABLE AT 120; SINUS TACH, NOT AFIB - DESPITE HIS HISTORY FOR AFIB.
--- NOTE | 2019-10-13 16:00 | NUR ---
PT ARRIVED TO PCU 8 VIA GURNEY FROM ED. PT IS NONVERBAL SECONDARY TO CVA WITH LEFT SITE WEAKNESS, HE ALSO HAS A PEG TUBE FOR FEEDING, BUT IS ON HOLD AT THIS TIME, VS RUNNING ON THE LOW SIDE, BUT MAP IS >60, HAS EYES OPEN AND MAKING EYE CONTACT, LUNGS HAVE RHONCHI T/O, RESP EVEN AND LABORED, USING ACCESSARY MUSCLES, IS ON 2 LITERS 02, SATES 95%, HAS LOTS OF SECRETIONS, HAS BEEN SUCTIONED A FEW TIMES, HRR, TELE IN PLACE RUNING ST IN THE ONE TEENS, NO EDEMA NOTED, PPP+1, CAP REFILL <3SEC, VS STABLE, AFEBRILE, IV SITES ARE CLEAR AND PATENT, INFUSING NS ORDERED, BTHYPO ACTIVE, ABD ROUND FIRM, PEG TUBE IN PLACE, SITE IS CLEAR, LOPEZ CATH DRAINING CLEAR YELLOW URINE, SKIN C/W/D, LEFT UPPER AND LOWER EXT SLIGHTLY CONTRACTED AND STIFF, JOSÉ ANTONIO, CALL LIGHT IN REACH. FAMILY IN ATTENDENCE.
--- NOTE | 2019-10-13 18:44 | NUR ---
WAS SUCTIONED, NO FURTHER CHANGES THIS SHIFT, CALL LIGHT IN REACH.
[2019-10-13 19:02] LABS: Adenovirus Not Detected (NOT DETECT); Bordetella pertussis Not Detected (NOT DETECT); Chlamydophila pneumoniae Not Detected (NOT DETECT); Coronavirus 229E Not Detected (NOT DETECT); Coronavirus HKU1 Not Detected (NOT DETECT); Coronavirus NL63 Not Detected (NOT DETECT); Coronavirus OC43 Not Detected (NOT DETECT); Human Metapneumovirus Not Detected (NOT DETECT); Human Rhinovirus/Enterovirus Not Detected (NOT DETECT); Influenza A Not Detected (NOT DETECT); Influenza A/2009-H1 Not Detected (NOT DETECT); Influenza A/H1 Not Detected (NOT DETECT); Influenza A/H3 Not Detected (NOT DETECT); Influenza B Not Detected (NOT DETECT); Mycoplasma pneumoniae Not Detected (NOT DETECT); Parainfluenza Virus 1 Not Detected (NOT DETECT); Parainfluenza Virus 2 Not Detected (NOT DETECT); Parainfluenza Virus 3 Not Detected (NOT DETECT); Parainfluenza Virus 4 Not Detected (NOT DETECT); Respiratory Syncytial Virus Not Detected (NOT DETECT)
[2019-10-13] MEDS ORDERED: LEVO750 PO (20:06)
[2019-10-13] MEDS ORDERED: ATOR80 PO (20:07)
--- NOTE | 2019-10-14 04:33 | NUR ---
SHIFT SUMMARY: PATIENT VERY CONGESTED WITH WEAK COUGH AND CANNOT CLEAR SECRETIONS. SUCTION PROVIDED BUT UNABLE TO REACH MUCUS. RT CALLED AND NASAL TRUMPET PLACED WITH DEEP SUCTION PERFORMED X3 THIS SHIFT, LARGE AMOUNTS SUCTIONED, CARE TAKEN TO NOT CREATE SWELLING IN THROAT. PATIENTS BREATHING STILL VERY LABORED AND CONGESTED, BIPAP PLACED INTERMITTENTLY PATIENT CANNOT TOLERATE IT FOR MORE THAN AN HOUR AT A TIME, PATIENT SLEEPS WHEN BIPAP IS ON. FREQUENT EYE AND ORAL CARE DONE ALONG WITH Q2 TURNS AND MYESHA/SKIN CARE. COMMUNICATION BOARD PROVIDED, SOFT TOUCH CALL LIGHT PROVIDED AND PATIENT USING APPROPRIATLY. VSS, BLOOD PRESSURE TRENDING LOWER THIS AM, MONITORING CAREFULLY.
[2019-10-14 04:54] LABS: BASOPHILS ABSOLUTE AUTO 0.04 K/mm3 (0.00-0.23); BASOPHILS PERCENT AUTO 0 % (0-2); EOSINOPHILS ABSOLUTE AUTO 0.08 K/mm3 (0.00-0.68); EOSINOPHILS PERCENT AUTO 1 % (0-6); Hematocrit 23.5 % (37.0-53.0); Hemoglobin 7.8 g/dL (13.5-17.5); IMMATURE GRAN ABSOLUTE AUTO 0.06 K/mm3 (0.00-0.10); IMMATURE GRAN PERCENT AUTO 1 % (0-1); LYMPHOCYTES PERCENT AUTO 17 % (21-46); MONOCYTES ABSOLUTE AUTO 0.97 K/mm3 (0.16-1.47); MONOCYTES PERCENT AUTO 9 % (4-13); Mean Corpuscular HGB 30.6 pg (26.0-34.0); Mean Corpuscular HGB Conc 33.2 g/dL (31.5-36.5); Mean Corpuscular Volume 92 fL (80-100); Mean Platelet Volume 9.3 fL (9.1-12.4); NEUTROPHILS ABSOLUTE AUTO 7.75 K/mm3 (1.96-9.15); NEUTROPHILS PERCENT AUTO 72 % (41-73); Platelet Count 404 K/mm3 (150-400); RDW Coefficient Variation 13.8 % (11.7-14.2); RDW Standard Deviation 46.5 fL (35.1-46.3); Red Blood Cell Count 2.55 M/mm3 (4.30-5.90)
[2019-10-14 05:16] LABS: Anion Gap 8 mmol/L (6-16); Blood Urea Nitrogen 23 mg/dL (8-24); Bun/Creatinine Ratio 31.5 (12.0-20.0); CO2, Blood 25 mmol/L (21-32); Calcium, Blood 7.7 mg/dL (8.5-10.1); Chloride, Blood 101 mmol/L (98-108); Creatinine, Blood 0.73 mg/dL (0.60-1.20); Glomerular Filtration Rate >60 (60-); Glucose, Blood 116 mg/dL (70-99); Potassium, Blood 3.4 mmol/L (3.5-5.5); Sodium, Blood 134 mmol/L (136-145)
--- NOTE | 2019-10-14 07:20 | NUR ---
RECEIVED THIS PATIENT FROM PCU. PT IS ON BIPAP. PT HAS LEFT SIDED WEAKNESS NOTED. PT IS ALERT GETS DROWSY AT TIMES. PT IS FOLLOWING COMMANDS. DENIES PAIN. PT IS CURRENTLY AFIB WITH HR 120s-180s. PT IS ALSO HYPOTENSIVE.
--- NOTE | 2019-10-14 08:20 | NUR ---
DR. ALFRED WAS NOTIFIED REGARDING PT'S HR AND HYPOTENSION. ORDERS RECEIVED.
--- NOTE | 2019-10-14 08:20 | NUR ---
PT SEEN BY DR. ALFRED, EKG WAS DONE ORDERED. ORDERS RECEIVED.
--- NOTE | 2019-10-14 09:30 | NUR ---
DR. ALFRED CAME BY AND TALKED TO FAMILY ABOUT CODE STATUS AND UPDATED THEM ON PT'S CONDITION. PT'S HR NOW IN THE LOW 100S. PT SEEMED TO BE RESPONDING TO THE AMIODARONE DRIP.
--- NOTE | 2019-10-14 19:15 | NUR ---
SHIFT SUMMARY: PT IS STILL ON AMIODARONE DRIP @ 0.5MG/MIN, PT CURRENTLY IS ON SINUS RHYTHM. STILL WITH COARSE CRACKLES, VERY GARBLED SPEECH. AFEBRILE.
--- NOTE | 2019-10-14 19:17 | NUR ---
ASSUMED PT CARE FROM GINGER GONZALEZ RN PT RESTING IN BED. ALERT AND NODDING HEAD YES/NO TO QUESTIONS. APPEARS COMFORTABLE AT THIS TIME. NO FAMILY AT BEDSIDE. HIFLOW NASAL CANNULA IN PLACE AT 4L OF OXYGEN. NASAL TRUMPET IN PLACE WELL FOR SUCTIONING D/T PT PRODUCING LOTS OF SECRETIONS. REMOVED NC IT KEPT FALLING OUT OF PATIENT'S NOSE; OXYGEN SATURATIONS REMAINED AT 99%. TUBE FEEDING, JEVITY 1.5, TRICKLING IN AT 10CC/HR. LOPEZ CATH IS PATENT AND DRAINING TO GRAVITY. WILL CONTINUE TO MONITOR FOR CHANGES.
[2019-10-15 03:53] LABS: BASOPHILS ABSOLUTE AUTO 0.05 K/mm3 (0.00-0.23); BASOPHILS PERCENT AUTO 1 % (0-2); EOSINOPHILS ABSOLUTE AUTO 0.07 K/mm3 (0.00-0.68); EOSINOPHILS PERCENT AUTO 1 % (0-6); Hematocrit 23.9 % (37.0-53.0); Hemoglobin 7.9 g/dL (13.5-17.5); IMMATURE GRAN ABSOLUTE AUTO 0.03 K/mm3 (0.00-0.10); IMMATURE GRAN PERCENT AUTO 0 % (0-1); LYMPHOCYTES ABSOLUTE AUTO 1.68 K/mm3 (0.84-5.20); LYMPHOCYTES PERCENT AUTO 17 % (21-46); MONOCYTES PERCENT AUTO 10 % (4-13); Mean Corpuscular HGB 30.6 pg (26.0-34.0); Mean Corpuscular HGB Conc 33.1 g/dL (31.5-36.5); Mean Corpuscular Volume 93 fL (80-100); Mean Platelet Volume 9.4 fL (9.1-12.4); NEUTROPHILS ABSOLUTE AUTO 7.08 K/mm3 (1.96-9.15); NEUTROPHILS PERCENT AUTO 71 % (41-73); Platelet Count 399 K/mm3 (150-400); RDW Coefficient Variation 13.9 % (11.7-14.2); RDW Standard Deviation 47.5 fL (35.1-46.3); Red Blood Cell Count 2.58 M/mm3 (4.30-5.90); White Blood Cell Count 9.91 K/mm3 (4.00-11.30)
[2019-10-15 04:11] LABS: Anion Gap 8 mmol/L (6-16); Blood Urea Nitrogen 18 mg/dL (8-24); Bun/Creatinine Ratio 23.5 (12.0-20.0); CO2, Blood 25 mmol/L (21-32); Calcium, Blood 7.7 mg/dL (8.5-10.1); Chloride, Blood 103 mmol/L (98-108); Creatinine, Blood 0.77 mg/dL (0.60-1.20); Glomerular Filtration Rate >60 (60-); Glucose, Blood 123 mg/dL (70-99); Potassium, Blood 3.1 mmol/L (3.5-5.5); Sodium, Blood 136 mmol/L (136-145)
--- NOTE | 2019-10-15 05:31 | NUR ---
END OF SHIFT SUMMARY NO SIGNIFICANT CHANGES SINCE LAST ENTRY. VSS T/O SHIFT; SEE FLOWSHEET. PT REMAINS ALERT AND ABLE TO MAKE BASIC NEEDS KNOWN WITH YES/NO QUESTIONS. HX OF CVA; THEREFORE, PT IS APHASIC. COMMUNICATION BOARD AT BEDSIDE. PT ALSO HAS A TOUCH PAD CALL LIGHT D/T POOR EYE SIGHT. PT ABLE TO USE RIGHT ARM ADEQUATELY. HOWEVER, LEFT ARM IS FLACCID WITH DEPENDENT EDEMA AND HAND CONTRACTURE NOTED; THEREFORE, ELEVATED ON PILLOW. JEVITY 1.5 CONTINUES TO TRICKLE FEED IN AT 10MLS/HR WITH NO RESIDUALS. NO SIGNS OF GI INTOLERANCE. ABDOMEN REMAINS DISTENDED, BUT BT ARE HYPOACTIVE. NO LOOSE STOOL THIS SHIFT. LOPEZ CATHETER REMAINS PATENT AND DRAINING CLOUDY YELLOW URINE TO GRAVITY WITH SEDIMENT NOTED. PT HAS REMAINED ON ROOM AIR T/O SHIFT. REQUIRED FREQUENT NT SUCTIONING VIA NASAL TRUMPET; PRODUCING COPIOUS AMOUNTS OF THICK, YELLOW SPUTUM. WILL CONTINUE TO MONITOR UNTIL REPORT IS HANDED OFF TO ONCOMING RN.
--- NOTE | 2019-10-15 08:28 | NUR ---
0730-ASSUMED CARE OF PT. PT IS ALERT AND ORIENTED. PT TRIES TO COMMUNICATE BUT HAS GARBLED SPEECH WHICH IS A LITTLE DIFFICULT TO UNDERSTAND. LEFT SIDED WEAKNESS, LEFT FACIAL DROOP NOTED. PT ON ROOM AIR AT THIS TIME. 0830-DR. ALFRED AT BEDSIDE. UPDATED HIM OF PT'S STATUS. ORDERS RECEIVED.
--- NOTE | 2019-10-15 17:39 | NUR ---
SHIFT SUMMARY: PT HAS MOSTLY BEEN SLEEPING THROUGHOUT THE DAY. PT IS FOLLOWING COMMANDS. NODDING AND SHAKING HEAD TO YES/NO QUESTIONS. AFEBRILE. NT SUCTIONING DONE PRN WITH THICK YELLOW TO GREENISH SPUTUM NOTED. AMIODARONE DRIP HAS BEEN OFF SINCE 0900 THIS MORNING. STILL ON SINUS RHYTHM WITH BUNDLE BRANCH BLOCK. TOLERATING TUBE FEEDING WELL, MINIMAL RESIDUAL. HAD 2 LIQUIDY BM TODAY. STILL WITH LEFT SIDED WEAKNESS.
--- NOTE | 2019-10-15 19:15 | NUR ---
ASSUMED PT CARE AT 1915 FROM GINGER GONZALEZ, RN PT SLEEPING IN BED, BUT EASILY AWAKENS. PT IS APHASIC D/T HX OF STROKE; HOWEVER, HE IS ORIENTED AND ABLE TO MAKE HIS NEEDS KNOWN WITH YES/NO QUESTIONS. PT REMAINS ON ROOM AIR WITH BIOX HIGH 90'S. PT CONTINUES TO HAVE COPIOUS AMOUNTS OF THICK, YELLOW SECRETIONS; REQUIRES FREQUENT NT SUCTIONING VIA NASAL TRUMPET. NO FAMILY AT BEDSIDE AT THIS TIME. TOUCH PAD CALL LIGHT IN REACH AND PT ABLE TO DEMONSTRATE USE.
--- NOTE | 2019-10-16 01:24 | NUR ---
INCREASED TUBE FEEDING, JEVITY 1.5, TO GOAL OF 50MLS/HR.
[2019-10-16 04:18] LABS: Anion Gap 8 mmol/L (6-16); Blood Urea Nitrogen 13 mg/dL (8-24); Bun/Creatinine Ratio 19.7 (12.0-20.0); CO2, Blood 25 mmol/L (21-32); Calcium, Blood 7.9 mg/dL (8.5-10.1); Chloride, Blood 106 mmol/L (98-108); Creatinine, Blood 0.66 mg/dL (0.60-1.20); Glomerular Filtration Rate >60 (60-); Glucose, Blood 159 mg/dL (70-99); Magnesium, Blood 1.4 mg/dL (1.6-2.4); Phosphorus, Blood 1.7 mg/dL (2.5-4.9); Potassium, Blood 3.2 mmol/L (3.5-5.5); Sodium, Blood 139 mmol/L (136-145)
--- NOTE | 2019-10-16 15:29 | NUR ---
Met with family and patient. Offered a later meeting if pt who is elderly needs to rest. They were open to meeting. They had many questions about hospice. They demonstrated understanding of hospice care and are open to that level of care. Their moral distress is when is the right time to discuss it with him. They are also struggling because he was doing well at [employer]. 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 Pt was awake off and on during conversation. They were also wondering if he improves and wants to try therapy he cam. Advised them they can terminate hospice and what that entails. Pt would interject that he wanted to eat. We discussed that he may not be able to eat or swallow food but they can help his experice food if he wants to if on hospice care. We carefully reviewed comfort and symptom management. Pt coughing frequently and grimacing with sore throat and inablity to cough out secretions. pt denies headaches sore mouth or nausea. He denies any pleuritic pain or back pain. no nausea states except for cough and sorness he ok for now. Review of comfort with nursing suggest liquid tylenol to make his cough more comfortable so hopefully he can cough harder. Plan [facility] family is to stay the course until friday and to speek with speech and the [employer] fork therapist on prognsos and hospice timing. Will follow for symptoms and needs.
--- NOTE | 2019-10-16 17:31 | NUR ---
SHIFT SUMMARY PT STATUS CHANGED TO MED TELE THIS SHIFT. AWAITING ROOM ASSIGNMENT. NASAL TRUMPET REMOVED BY RN. PT ABLE TO MANAGE SECRETIONS AT THIS TIME. ABLE TO CALL WHEN SUCTIONING NEEDED. WEAK COUGH. MODERATE AMOUNT OF THICK WHITE SPUTUM. LUNGS COARSE THROUGHOUT. O2 SATS HIGH 90'S ON RA. TUBE FEEDS CONTINUE AT 50ML/HR, AT GOAL RATE c 30ML q4 HR FLUSHES. MINIMAL RESIDUALS. PT DENIES ABD PAIN. VSS. PT AND FAMILY HAD DISCUSS rupal SUE FROM PALLATIVE CARE REGARDING POSSIBLE HOSPICE PLACEMENT. WILL HAVE SPEECH EVAL FRIDAY. REPORT TO ONCOMING NURSE.
--- NOTE | 2019-10-16 22:48 | NUR ---
ASSUMPTION OF CARE ASSUMED CARE OF PT @ 1900, PT SITTING IN CHAIR, TRANSFERED TO BED WITH CEILING LIFT PER PT REQUEST. PT ALERT AND ORIENTED TO SELF, LOCATION AND FOLLOWING DIRECTIONS. PT LS VERY COARSE, WITH WEAK, PRODUCTIVE COUGH, PRN SUCTIONING PROVIDED TO CLEAR SECRETIONS. MONITOR SHOWS HR 100-110, BP STABLE. PEG TO L ABD INF TF @ GOAL RATE OF 50ml/hr, 30ml Q4H FLUSH. LFA IV WITH TKO. PT WITH L SIDED WEAKNESS AND L ARM CONTRACTURE, BEDBOUND AT [facility]. LOPEZ IN PLACE DRAINING VERY SMALL AMOUNT OF CLOUDY YELLOW URINE. PT VERY PLEASANT AND COOPERATIVE, CALL LIGHT WITHIN REACH.
--- NOTE | 2019-10-16 23:48 | NUR ---
PT REMAINS IN BED RESTING, AROUSABLE TO VERBAL STIMULI, STS HE FEELS HUNGRY, EXPLAINED NPO STATUS, PT UNDERSTANDS.
[2019-10-17 03:35] LABS: Anion Gap 8 mmol/L (6-16); Blood Urea Nitrogen 14 mg/dL (8-24); Bun/Creatinine Ratio 23.2 (12.0-20.0); CO2, Blood 25 mmol/L (21-32); Calcium, Blood 7.5 mg/dL (8.5-10.1); Chloride, Blood 105 mmol/L (98-108); Glomerular Filtration Rate >60 (60-); Glucose, Blood 128 mg/dL (70-99); Magnesium, Blood 1.5 mg/dL (1.6-2.4); Phosphorus, Blood 2.5 mg/dL (2.5-4.9); Potassium, Blood 3.3 mmol/L (3.5-5.5); Sodium, Blood 138 mmol/L (136-145)
--- NOTE | 2019-10-17 06:18 | NUR ---
SHIFT SUMMARY NO ACUTE CHANGES THIS SHIFT. PT REMAINS AROUSABLE TO VERBAL STIMULI, ANSWERS SOME YES NO QUESTIONS, ATTEMPTS SOME COMMUNICATION BUT IS DIFFICULT TO UNDERSTAND. PT ON RA T/O SHIFT, MINIMAL SUCTIONING REQUIRED THIS SHIFT. MONITOR SHOWS SINUS TACH, BP LOW BUT STABLE. TF INFUSING PER PEG, LOW RESIDUALS. LOPEZ IN PLACE, DRAINING VERY LITTLE URINE, 20ml OUTPUT THIS SHIFT.
--- NOTE | 2019-10-17 10:57 | NUR ---
0745 AM ASSESSMENT REVEALS A PT WITH SEVERE ASPIRATION POTENTIALS WHO IS SETTING IN HIGH FOWLERS POSITION FOR AIRWAY PROTECTION. PT IS ABLE TO SPEAK A FEW WORDS AND IS ABLE TO UNDERSTAMDS THE CONVERSATIONS. PT IS CONTRACTURED ON L SIDE WITH FACIAL DROP TO L SIDE. PT HAS STOOLED AND WAS CLEANED UP. PT HAS TF INFUSING AT 50ML OF JEVITY. LOPEZ IS PATENT. IV SITES PATENT.
--- NOTE | 2019-10-17 13:04 | NUR ---
REPORT CALLED TO NATALY RN AND PT WILL GO TO [address].
--- NOTE | 2019-10-17 13:34 | NUR ---
ASSUMED PATIENT CARE. PATIENT RESTING COMFORTABLY IN BED. EQUAL BILATERAL CHEST RISE WITH BREATH, PATIENT DENIES CHEST PAIN AND SHORTNESS OF BREATH. NO SIGNS OF ACUTE DISTRESS. WCTM.
--- NOTE | 2019-10-17 14:26 | NUR ---
PT IS NOW SENT TO [address] VIA CHAIR AND WILL BE TRANSFERED TO BED. FAMILY IS IN ATTENTANCE.
--- NOTE | 2019-10-17 14:42 | NUR ---
ASSUMED PATIENT CARE. PATIENT TRANSFERED TO BED FROM FROM CHAIR WITH LIFT, TOLERATED WELL. EQUAL BILATERAL CHEST RISE WITH BREATH, NO SIGNS OF ACUTE DISTRESS. WCTM.
--- NOTE | 2019-10-17 15:30 | NUR ---
PATIENT RESIDUALS CHECKED, NO RESIDUAL NOTED. TUBE FEED RESTARTED AND RUNNING AT [employer] 50 ML/HOUR. NO SIGNS OF ACUTE DISTRESS, BOWEL SOUNDS ACTIVE. WCTM.
--- NOTE | 2019-10-17 18:52 | NUR ---
PATIENT ARRIVED TO THIS UNIT FROM ICU THIS AFTERNOON. NO ACUTE EVENTS THIS SHIFT. PER PROVIDER NOTES, PLAN IS FOR THE PATIENT TO HAVE A SPEECH PATHOLOGY EVAL TOMORROW, AND FOR A DISCUSSION TO TAKE PLACE WITH THE FAMILY TO EVALUATE CHANGING TO COMFORT CARE STATUS. LIP BALM WAS APPLIED MULTIPLE TIMES THROUGH THIS HALF OF SHIFT. PATIENT INDICATED THAT HE LIKES TO HAVE LUBRICATING EYEDROPS APPLIED TO HIS RIGHT EYE BEFORE THE MEDICATION IS APPLIED.
--- NOTE | 2019-10-18 00:15 | NUR ---
PT IS BECOMING MORE COMMUNICATIVE. WHEN ASKED IF HE WAS COMFORTABLE, HE SHOOK HIS HEAD AND STATED THAT HE WANTED TO BE HIGHER UP. AFTER REPOSITIONING HE STATED THAT HE FELT MORE COMFORTABLE. DENIES FURTHER NEEDS OR WANTS AT THIS TIME. SAFETY MEASURES IN PLACE. WILL CONTINUE TO MONITOR.
[2019-10-18 05:43] LABS: Magnesium, Blood 1.6 mg/dL (1.6-2.4); Phosphorus, Blood 2.3 mg/dL (2.5-4.9)
--- NOTE | 2019-10-18 06:34 | NUR ---
SHIFT SUMMARY HAS RESTED WELL THIS SHIFT. BED BATH AND FULL LINEN CHANGE COMLETED. BM NOTED THIS SHIFT. HAS DENIED PAIN, DISCOMFORT, OR FURTHER NEEDS. CONTINUES TO BE MORE COMMUNICATIVE. SAFETY MEASURES IN PLACE. WILL GIVE HAND OFF TO ONCOMING SHIFT USING SBAR DURING BEDSIDE REPORT.
--- NOTE | 2019-10-18 09:18 | NUR ---
PT REPORTED TO HAVE 12 BEAT RUN OF V-TACH RECENTLY APPROX 08:50. PT DENIES CP/SOB. PT VS APPROX SAME. DISCUSSED WITH EXTRACORPOREAL TECHNICIAN. NOTIFIED, NO NEW ORDERS AT THIS TIME.
--- NOTE | 2019-10-18 12:13 | NUR ---
SPEECH THERAPY TALKING WITH FAMILY.
--- NOTE | 2019-10-18 15:07 | NUR ---
Speech therapy spent time with family and pt and assited with a plan and the risks pt faces. Family feels quality of life would be best with hospice care. Met with patient and family and health care analyst for discharege plan. pt comfortable repirations even will monitor symptoms until discharge
--- NOTE | 2019-10-18 16:32 | NUR ---
SHIFT SUMMARY PT NPO. PT ON TUBE FEEDING. PT BEEN REPOSITIONED MULT TIMES. PT ARMS AND LEGS ELEVATED. PT BEEN ASSISTED WITH ADL'S PRN. SPEECH THERAPY BEEN TO SEE PT WITH FAMILY PRESENT. HEAD OF LOSS PREVENTION AND OTHER S.S. BEEN TO SEE PT AND FAMILY. REPORTED TO BE SET UP TO GO BACK TO [facility] [employer] APPR 10:00. PT LOPEZ WAS FLUSHED TODAY IT WAS NOT DRAINING, THEN IT DRAINED WELL.
--- NOTE | 2019-10-19 04:04 | NUR ---
SHIFT SUMMARY PT IS ALERT AND CAN ANSWER YES/NO QUESTIONS BUT IS OTHERWISE VERY DIFFICULT TO UNDERSTAND. PT IS RECEIVING CONT FEEDING IN PEG TUBE. LOPEZ IN PLACE, DRAINING. PT REPOSITIONED MULT TIMES. ORAL SUCTION AND MOUTH SWABS PROVIDED PRN. ASSISTED WITH ADL'S PRN.
--- NOTE | 2019-10-19 10:23 | NUR ---
DISCHARGE: PT OUT BY TRANSPORT WITH BELONGINGS, PAPERWORK, SCRIPTS. PHOTOGRAPHER NEWS ASSISTED WITH DISCHARGE INCLUDING TALKING WITH FAMILY. REPORT GIVEN TO ARISTIDES Serra AT [facility] PT SENT WITH HOME EYE DROPS WELL.
--- NOTE | 2019-10-20 13:30 | NUR ---
Discussed with [facility]. He states that the pt and the family are not ready for hospice services due to their distrust of the speech eval. They are requesting the facility's speech therapist to re-evaluate pt's swallow. Pt was at facility with DNR bracelet still on from hospital admission, however, family stated that he is NOT a DNR/DNI and that he would accept shocks and would be willing to return to the hospital for additional medical treatment. If pt returns to hospital, POLST form should be readdressed along with additional hospice teaching. Hospice teaching is firmly documented in the pt's chart by palliative care. Fredis will assess pt tomorrow after the speech evaluation is performed today by the facility's ST. May consider a follow up phone call to family if pt decides not to follow through with enrollment. Pt is high risk of returning to the hospital. He is appropriate for end of life care and hospice services.
== END 2019-10-19 10:20 | disposition home or self-care (01) | DRG 871 ==
LOC: ER 03:56 → ERHOLD 05:13 → PCU 16:04 → ICUE 10-14 07:17 → ICUW 10-16 21:00 → ICUE 10-16 21:25 → SURS 10-17 15:49
PROVIDERS: Emergency Medicine; Hospitalist; ADMIT Internal Medicine
PROC: 5A09457 Assistance with Respiratory Ventilation, 24-96 Consecutive Hours, Continuous Positive Airway Pressure (ICD-10-PCS; principal; 2019-10-14)
DX: A41.9 Sepsis, unspecified organism (principal); J69.0 Pneumonitis due to inhalation of food and vomit; J96.01 Acute respiratory failure with hypoxia; I69.354 Hemiplegia and hemiparesis following cerebral infarction affecting left non-dominant side; E03.9 Hypothyroidism, unspecified; E11.9 Type 2 diabetes mellitus without complications; E83.39 Other disorders of phosphorus metabolism; E83.42 Hypomagnesemia; E87.6 Hypokalemia; I48.0 Paroxysmal atrial fibrillation; R65.20 Severe sepsis without septic shock; Z66 Do not resuscitate; I10 Essential (primary) hypertension; R13.10 Dysphagia, unspecified; I69.398 Other sequelae of cerebral infarction; E78.5 Hyperlipidemia, unspecified; I69.391 Dysphagia following cerebral infarction; I95.9 Hypotension, unspecified
CPT/HCPCS: 0099U; 31720; 36415; 36600; 51798; 71045; 74018; 80048; 80053; 82330; 82803; 82947; 83735; 83880; 84100; 84484; 85025; 87070; 87205; 87493; 92610; 93005; 93010; 94640; 94660; 94762; 96361; 96372-59; 96374; 96375; 99285-25; A9270-GY; J0282; J1650; J1956; J2543; J2560; J3475; J3480; J7030; J7050; J7060